=== PATIENT | female | born 1945 | race Caucasian/White ===

== ENCOUNTER → 2017-04-10 | Day surgery (SDC) | payer MEDICARE ==
[~2017-04-10] MED LIST: ACETAMINOPHEN/HYDROcodone 325 MG/5 MG TAB ONE; CIPR750T10 PO; FLAG500T PO; ISOSULFAN BLUE 50 MG/5 ML VIAL SQ ONE; KETOROLAC TROMETHAMINE 30 MG/ML (IVP) VIAL IV PUSH ONE; LACTATED RINGER'S 1000 ML INJ 1,000 ML ONE; LIDOCAINE 1%/EPINEPHrine 1:100,000 SOLN 20 ML VIAL ONE; MIDAZOLAM HCL 2 MG/2 ML VIAL ONE; ONDANSETRON HCL 4 MG/2 ML VIAL IV PUSH ONE; PROPOFOL 200 MG/20 ML AMP IV ONE; ZOFR4TAB3 SL; ceFAZolin 2 GM PREMIX 50 ML ONE
--- NOTE | 2017-04-10 12:54 | TN ---
cc: CARLOS TROY M.D. 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 Abnormal MRI right retroareolar breast tissue. 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 Abnormal MRI right retroareolar breast tissue. PROCEDURE Injection of blue dye right breast, right axillary sentinel lymph node biopsy, excisional biopsy right breast retroareolar tissue, right breast needle-localized lumpectomy. SURGEON Dr. Carlos Troy CLASSIFIED AD TAKER Luisana Stanton, MS3 ANESTHESIA General. 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 Preoperative MRI demonstrated a larger area of involvement than initially anticipated as well as abnormal uptake of contrast in the right retroareolar breast tissue. Ultrasound demonstrated no discrete abnormality in the retroareolar position. INTRAOPERATIVE FINDINGS 1. Three sentinel lymph nodes removed, #1, 2 and 3 all blue stained with 10-second counts of 2389, 116 and 226 respectively. 2. An additional nonsentinel lymph node was directly between sentinel lymph node #1 and #2 and was sent for pathologic evaluation. 3. Right breast retroareolar tissue unoriented was sent for permanent pathology. 4. Right breast needle-localized lumpectomy specimen was sent to Radiology where imaging confirmed and contained the areas of concern, the clips and microcalcifications. 5. An additional medial margin of the right breast lumpectomy cavity was sent separately for pathology. ESTIMATED BLOOD LOSS Less than 20 mL. DESCRIPTION OF PROCEDURE IN DETAIL The patient was identified as Kesha Triana, taken to the operating room, placed in supine position following needle localization and lymphoscintigraphy. Sequential compression devices were placed on bilateral lower extremities. Following induction of adequate general endotracheal anesthesia, a time-out procedure was performed. Following completion of the time-out procedure to everyone's satisfaction within the room, the skin of the breast was prepped with an alcohol prep pad and 5 cc of isosulfan blue dye was injected in the peritumoral and subareolar positions. It was massaged in the breast for about 30 seconds. The right breast and axilla were then prepped and draped in the usual sterile fashion with Betadine. The navigator probe was used to identify increased uptake in the axilla. No increased uptake was identified and internal mammary or supraclavicular raul basins. Proposed incision along the right axilla and the periareolar superolateral right breast were made with a marking pen and infiltrated with local anesthetic. Axillary incision was carried out with scalpel and hemostasis controlled with electrocautery. Dissection continued posteriorly through subcutaneous fatty tissue until axillary fat was identified. Using the navigator probe and visualization of the axillary tissue, the sentinel nodes were identified. Afferent and efferent lymphatics were controlled with hemoclips. The sentinel nodes and the additional nonsentinel node were removed, 10 second counts performed and they were passed off the field for pathologic evaluation. Survey with a navigator probe, visualization and palpation demonstrated no additional abnormal tissue to be removed. The wound was irrigated with saline. Small bleeding points were controlled with electrocautery. The wound was filled with local anesthetic and closed with 3-0 Vicryl and 4-0 Monocryl. Attention was then turned to the right breast. Periareolar areolar incision was carried out with scalpel and hemostasis controlled with electrocautery. Retroareolar tissue centered at the level of the nipple was excised using electrocautery and passed off the field for pathologic evaluation. No palpably or visually abnormal tissue was identified. Attention was then turned to hidden scar lumpectomy. Dissecting posteriorly and along the lateral breast in the superficial breast tissue, the localization needle was identified. It was divided to the level of skin with the wire cutters. A generous lumpectomy specimen about 6 cm in diameter, spherical in shape, was excised from surrounding breast tissues. Clinically posterior margin was chest wall. The specimen was examined and the closest margin to the localization needle appeared to be medial, therefore a medial margin was excised. The lumpectomy specimen was marked with a short stitch superior anterior and a long stitch lateral posterior. The medial margin was marked with a suture on the new medial margin. The specimens were sent, the first one to imaging with the above-mentioned findings, both then sent for permanent pathology. The wound was irrigated copiously with saline. Small bleeding points were controlled with electrocautery. About 20 cc of local anesthetic was placed within the lumpectomy cavity. The breast tissue was then gently approximated over the lumpectomy cavity with 3-0 Vicryl and 3-0 Vicryl was placed in the deep dermis and subcutaneous tissue. The skin was then approximated with a running 4-0 Monocryl subcuticular suture. Dressings were applied with Mastisol, 1/2-inch brown Steri-Strips and a 4x4 gauze and Tegaderm. A Tegaderm with Telfa pad was placed over the axillary incision. The patient tolerated the procedures without apparent complication. Sponge, needle and instrument counts were correct at the end of the case. MD DIVINA Higgins/SSB /12:33 PM /12:45 PM
== END | disposition home or self-care (01) ==
LOC: ESDC 06:25
PROVIDERS: ATTEND Surgery Trauma Surgery
DX: D05.11 Intraductal carcinoma in situ of right breast (principal); R92.8 Other abnormal and inconclusive findings on diagnostic imaging of breast
CPT/HCPCS: 00400; 01610; 19120; 19125; 38525; 38792; 88307; 88341; 88342; 88361; J0690; J1885; J2250; J2405; J3010; J7120; Q9968

== ENCOUNTER 2017-05-22 06:24 | Day surgery (SDC) | payer MEDICARE ==
[~2017-05-22] VITALS: Ht 170.2 cm; Wt 90.0 kg
[2017-05-22] VITALS (7 sets, daily range): BP systolic 138–181; BP diastolic 60–91; PULSE 50–59; RESP 16–20; TEMP 97.6–98; O2SAT 97–99
[~2017-05-22 06:24] MED LIST changes: -ACETAMINOPHEN/HYDROcodone 325 MG/5 MG TAB ONE; -ISOSULFAN BLUE 50 MG/5 ML VIAL SQ ONE; -KETOROLAC TROMETHAMINE 30 MG/ML (IVP) VIAL IV PUSH ONE; -LACTATED RINGER'S 1000 ML INJ 1,000 ML ONE; -LIDOCAINE 1%/EPINEPHrine 1:100,000 SOLN 20 ML VIAL ONE; -MIDAZOLAM HCL 2 MG/2 ML VIAL ONE; -ONDANSETRON HCL 4 MG/2 ML VIAL IV PUSH ONE; -PROPOFOL 200 MG/20 ML AMP IV ONE; -ceFAZolin 2 GM PREMIX 50 ML ONE
[2017-05-22] MEDS ORDERED: SODIUM CHLORIDE 0.9% 1000 ML IV SCH (07:30)
[2017-05-22] MEDS ORDERED: POVIDONE IODINE 5% (ANTISEPSIS KIT) 4 APPLICATIONS EACH NARE SCH (07:30)
[2017-05-22] MEDS ORDERED: ceFAZolin 2 GM PREMIX 50 ML - implanted port/tunneled catheter insertion IV SCH (07:30)
[2017-05-22] MEDS ORDERED: VANCOMYCIN 1000 MG/NS 250 ML - implanted port/tunneled catheter IV SCH ×2 (07:30)
[2017-05-22] MEDS ORDERED: CHLORHEXIDINE GLUCONATE 2 % 1 PACK (2 CLOTHS) TOPICAL SCH (07:30)
[2017-05-22] MEDS ORDERED: fentaNYL CITRATE 250 MCG/5 ML AMP ONE (07:48)
[2017-05-22] MEDS ORDERED: MIDAZOLAM HCL 2 MG/2 ML VIAL ONE ×2 (07:48→08:47)
[2017-05-22] MEDS ORDERED: LIDOCAINE 1%/EPINEPHrine 1:100,000 SOLN 20 ML VIAL ONE (08:07)
[2017-05-22] MEDS ORDERED: SODIUM CHLORIDE 0.9% FLUSH 10 ML FLUSH IVF PRN (09:00)
--- NOTE | 2017-05-22 09:21 | PD.RAD ---
Post Procedure Progress Note Pre Procedure Diagnosis: (1) Breast cancer in situ Post Procedure Diagnosis: (1) Breast cancer in situ Procedure Date: May 22, 2017 Supervising Radiologist: Huy Stewart Proceduralist/Assist: Cathy Brown RT(R), RT Luciana(R)() Anesthesia: Local, Analgesia, Conscious Sedation Plan of Activity Patient to Unit: ROPU Patient Condition: Good See PACS Report for procedural detail/treatment Central Venous Access Device Procedure 1 Right Internal Jugular Infusaport Placement single lumen Latvian: 8 Huy Stewart MD May 22, 2017 09:21
--- NOTE | 2017-05-22 12:46 | RADRPT ---
EXAM DATE/TIME: 05/22/2017 08:18 [facility] COMPARISON: No previous studies available for comparison. INDICATIONS : Patient with history of breast cancer in need of port placement for chemotherapy. MEDICAL HISTORY : 1.Breast cancer 2.Chronic cholecystitis 3.Cholelithiasis 4.Diverticulitis SURGICAL HISTORY : 1.Breast biopsy 2.Lumpectomy 3.Appendectomy 4.Cholecystectomy 5.Tubal ligation 6.Tonsillectomy ENCOUNTER: Initial ACUITY: 1 month PAIN SCORE: 0/10 FLUORO TIME: 0.4 minutes IMAGE SERIES: 0 SEDATION TIME: 60 minutes ACCESS: Right internal jugular vein SEDATION: 1.) 4 mg midazolam (Versed) IV 2.) 250 mcg fentanyl (Sublimaze) IV Prophylactic antibiotics were administered with appropriate pre-procedure timing. Vancomycin within 2 hours of procedure, Ancef (or alternative) within 1 hour of procedure. DEVICE: 1. 8 Wolof single lumen Angiodynamics Smart Power port PROCEDURE : 1. Continuous pulse oximetry and EKG monitoring. 2. Intravenous conscious sedation. 3. Ultrasound guidance for venous access. 4. Fluoroscopic guided implantable central venous port placement. The patient was placed supine. The neck was prepped in sterile fashion. Full sterile technique was u sed, including cap, mask, sterile gloves and gown, and a large sterile sheet. Hand hygiene and 2% ch lorhexidine Betadine was utilized per protocol for cutaneous antisepsis with appropriate dry time for site. The skin and subcutaneous tissues were infiltrated with local anesthetic solution. Under direct ultrasound guidance, central venous access was accomplished in the targeted vessel. The ultrasound images depicting access guidance were stored and saved to PACS for permanent record. A s ubcutaneous pocket was created using blunt dissection. The port was introduced to the pocket. The c atheter tubing was fed through a subcutaneous tunnel to the venotomy site. The catheter tubing was c ut to a suitable length and then was introduced through a valved Peel-Away sheath and positioned with catheter tubing tip at the cavo-atrial junction level. The pocket incision was closed with subcutic ular Vicryl suture. Steri-Strips were applied. The port was flushed and locked with heparin solutio n per protocol. Sterile dressing was applied to the site. The patient tolerated the procedure well. Conscious sedation was performed with the prescribed dosages and duration as above in the presence of an independent trained radiology nurse to assist in the monitoring of the patient. EKG and oximetry remained stable throughout the procedure. The patient tolerated the procedure well and there were no complications. The patient was sent to post anesthesia recovery in stable condition. CONCLUSION: Uncomplicated ultrasound and fluoroscopic guided implanted central venous port catheter placement as described in detail above. An 8 Wolof Power port was placed. Huy Stewart MD on May 22, 2017 at 12:44 Board Certified Radiologist. This report was verified electronically.
== END 2017-05-22 11:20 | disposition home or self-care (01) ==
LOC: HRIP 06:24 → HROP 06:24
PROVIDERS: ATTEND Internal Medicine
DX: Z45.2 Encounter for adjustment and management of vascular access device (principal); D05.11 Intraductal carcinoma in situ of right breast
CPT/HCPCS: 36561; 76937; 77001; 99152; 99153; C1788; J0690; J1642; J2250; J3010; J3370; J7050

== ENCOUNTER → 2017-06-09 | Day surgery (SDC) | payer MEDICARE ==
[~2017-06-09] MED LIST changes: +AMOX875T2 PO; -CIPR750T10 PO; -FLAG500T PO; +FLOR250C PO; +HYDR-3580 PO; +IOHEXOL 180 MG/ML 20 ML VIAL (for RAD DIAG) OTHER ONE; +LEVA500T20 PO; +LIDOCAINE HCL 1% PF 30 ML VIAL ONE; +METR-1 PO; +MIDAZOLAM HCL 2 MG/2 ML VIAL ONE; +PROPOFOL 200 MG/20 ML AMP IV ONE; +TRIAMCINOLONE ACETONIDE 40 MG/ML VIAL ONE; -ZOFR4TAB3 SL; +[UNRECOGNIZED DRUG - CODE] IM; +chemo IV
--- NOTE | 2017-06-09 12:36 | TN ---
cc: PEREZ POOL DATE OF SURGERY 06/09/2017 PREOPERATIVE DIAGNOSIS 1. Osteoarthritis right hip. 2. Arthrofibrosis right hip. POSTOPERATIVE DIAGNOSIS 1. Osteoarthritis right hip. 2. Arthrofibrosis right hip. PROCEDURE 1. Arthrogram right hip. 2. Manipulation right hip under anesthesia. 3. Use of fluoroscopy for percutaneous guidance 4. Injection of right hip with Kenalog 40 mg 5. X-ray right hip, two-view SURGEON Perez Pool MD ANESTHESIA TIVA ESTIMATED BLOOD LOSS Minimal INDICATIONS This is a 71-year-old female with significant right hip pain. Investigative studies shows evidence of severe arthritis of the right hip. The patient care is complicated by ongoing treatment for breast carcinoma. She presents for the above procedure. PROCEDURE The patient was brought to the operating room, anesthetized in the supine position. The right leg was scrubbed with alcohol followed by Hibiclens followed Chloraprep and draped sterilely. Antibiotics were held. A time-out was done. The hip was evaluated. Under anesthesia, range of motion and extension negative 15, flexion 80, internal rotation 10, external rotation 15, abduction 20, adduction 5. The hip was manipulated. After manipulation, range of motion extension zero, flexion 100, internal rotation 20, external rotation 30, adduction 15, abduction 30. The right hip was scrubbed alcohol followed by Hibiclens followed Chloraprep and draped sterilely. A 22-gauge spinal needle was advanced across the anterior aspect of the right hip joint. This was placed into intra-articular position. An arthrogram was performed. This showed pitting and erosive changes. Large circumferential osteophytes were seen. There was no leak of contrast. We then injected with 40 mg of Kenalog and 3 cc of 1% lidocaine plain. The patient was awakened and taken to recovery in satisfactory condition. MD SUJEY Silverman/JUAN /12:14 PM /12:26 PM
== END | disposition home or self-care (01) ==
LOC: ESDC 09:49
PROVIDERS: ATTEND Orthopaedic Surgery Orthopaedic Surgery of the Spine
DX: M16.11 Unilateral primary osteoarthritis, right hip (principal); M24.651 Ankylosis, right hip
CPT/HCPCS: 01200; 27275; 73501; 76000; J2250; J3010; J3301; Q9965

== ENCOUNTER 2017-07-07 08:33 | Inpatient (IN) | payer MEDICARE ==
[2017-07-07] VITALS (7 sets, daily range): BP systolic 117–155; BP diastolic 66–73; PULSE 73–85; RESP 16–20; TEMP 96.3–97.9; O2SAT 96–100
[~2017-07-07] VITALS: Ht 170.2 cm; Wt 92.9 kg
[2017-07-07] MEDS ORDERED: SODIUM CHLOR 0.9% 1000 ML INJ 1,000 ML IV SCH (08:57)
[2017-07-07] MEDS ORDERED: chemo IV (08:59)
[2017-07-07] MEDS ORDERED: [UNRECOGNIZED DRUG - CODE] IM (08:59)
[2017-07-07] MEDS ORDERED: HYDROmorphone HCL PF 2 MG/ML VIAL IVS ONE (09:00)
[2017-07-07] MEDS ORDERED: ONDANSETRON HCL 4 MG/2 ML VIAL IVP ONE (09:00)
[2017-07-07] MEDS ORDERED: SODIUM CHLORIDE 0.9% FLUSH 10 ML FLUSH IV FLUSH PRN (09:00)
[2017-07-07] MEDS ORDERED: AMPICILLIN-SULBACTAM INJ 3 GM in SODIUM CHLORIDE 0.9% INJ 100 ML IV ONE (09:00)
--- NOTE | 2017-07-07 09:00 | PD ---
HPI Chief Complaint: Abdominal Pain Time Seen by Provider: 08:47 Travel History International Travel<30 days: No Contact w/Intl Traveler<30days: No Traveled to known affect area: No History of Present Illness HPI This 71-year-old female is complaining of left-sided abdominal pain. She has had diverticulitis in the past. She had an episode about a year ago. She had a another episode started around June 21. She was put on 10 days of Flagyl and Cipro. She took her last pill last Monday and since she felt like she was okay. She started having some left-sided pain yesterday and this morning around 5:30 the pain became increasingly severe. She has a little bit nauseated. She has a history of breast cancer. She had her second chemotherapy treatment last week. She has seen Dr. Cruz in the past and had a colonoscopy done 2 years ago. She says the pain she is having now is quite severe and has been fairly constant. She is not aware of fever. PFSH Past Medical History Cancer: Yes (breast ) Cardiovascular Problems: No Chemotherapy: Yes (monday07/05/17) Diabetes: No Diminished Hearing: No Diverticulitis: Yes Endocrine: No Gastrointestinal Disorders: Yes (diverticulitis) Genitourinary: No Hepatitis: No Hiatal Hernia: No Immune Disorder: No Musculoskeletal: No Neurologic: No Psychiatric: No Reproductive: No Respiratory: No Immunizations Current: No Thyroid Disease: No Tetanus Vaccination: Unknown Influenza Vaccination: No ?: Not Past Surgical History Abdominal Surgery: Yes (gall bladder) AICD: No Appendectomy: Yes Cholecystectomy: Yes Joint Replacement: No Pacemaker: No Tonsillectomy: Yes Other Surgery: Yes Social History Alcohol Use: No Tobacco Use: No (FORMER) Substance Use: No Allergies-Medications (Allergen,Severity, Reaction): Coded Allergies: No Known Allergies (Unverified , 07/07/17) Reported Meds & Prescriptions Reported Meds & Active Scripts Active Reported Herceptin Inj (Trastuzumab) 440 Mg Inj 1 Injection IM [chemo] 1 Bag IV [id number] Review of Systems General / Constitutional: No: Fever, Chills Eyes: No: Diploplia HENT: No: Headaches, Vertigo Cardiovascular: No: Chest Pain or Discomfort, Palpitations Respiratory: No: Cough, Shortness of Breath Gastrointestinal: Positive: Nausea, Abdominal Pain, No: Vomiting, Diarrhea Genitourinary: No: Frequency, Dysuria Skin: No Rash, No Itching Neurologic: No: Weakness, Dizziness Psychiatric: No: Anxiety Physical Exam Narrative GENERAL: Well-developed female SKIN: Focused skin assessment warm/dry. HEAD: Atraumatic. Normocephalic. EYES: Pupils equal and round. No scleral icterus. No injection or drainage. ENT: No nasal bleeding or discharge. Mucous membranes pink and moist. NECK: Trachea midline. No JVD. CARDIOVASCULAR: Regular rate and rhythm. No murmur appreciated. RESPIRATORY: No accessory muscle use. Clear to auscultation. Breath sounds equal bilaterally. GASTROINTESTINAL: Abdomen soft, there is left-sided abdominal tenderness nondistended. Hepatic and splenic margins not palpable. MUSCULOSKELETAL: No obvious deformities. No clubbing. No cyanosis. No edema. NEUROLOGICAL: Awake and alert. No obvious cranial nerve deficits. Motor grossly within normal limits. Normal speech. PSYCHIATRIC: Appropriate mood and affect; insight and judgment normal. Data Data Last Documented VS Vital Signs Date Time Temp Pulse Resp B/P (MAP) Pulse Ox O2 Delivery O2 Flow Rate FiO2 07/07/17 11:20 16 07/07/17 10:14 77 155/73 (100) 99 Room Air 07/07/17 08:41 97.9 Orders Orders Complete Blood Count With Diff (07/07/17 08:57) Comprehensive Metabolic Panel (07/07/17 08:57) Urinalysis - C+S If Indicated (07/07/17 08:57) Ct Abd/Pel W Iv Contrast(Rout) (07/07/17 08:57) Iv Access Insert/Monitor (07/07/17 08:57) Oximetry (07/07/17 08:57) Hydromorphone Pf Inj (Dilaudid Pf Inj) (07/07/17 09:00) Ondansetron Inj (Zofran Inj) (07/07/17 09:00) Ampicillin-Sulbactam Inj (Unasyn Inj) (07/07/17 09:00) Sodium Chlor 0.9% 1000 Ml Inj (Ns 1000 M (07/07/17 08:57) Sodium Chloride 0.9% Flush (Ns Flush) (07/07/17 09:00) Hydromorphone Pf Inj (Dilaudid Pf Inj) (07/07/17 10:45) Admit Order (Ed Use Only) (07/07/17 11:19) Labs Laboratory Tests Test 07/07/17 09:25 White Blood Count 13.2 TH/MM3 Red Blood Count 4.06 MIL/MM3 Hemoglobin 12.6 GM/DL Hematocrit 37.0 % Mean Corpuscular Volume 91.2 FL Mean Corpuscular Hemoglobin 31.1 PG Mean Corpuscular Hemoglobin Concent 34.2 % Red Cell Distribution Width 12.0 % Platelet Count 266 TH/MM3 Mean Platelet Volume 7.0 FL Neutrophils (%) (Auto) 91.6 % Lymphocytes (%) (Auto) 5.6 % Monocytes (%) (Auto) 0.9 % Eosinophils (%) (Auto) 0.7 % Basophils (%) (Auto) 1.2 % Neutrophils # (Auto) 12.1 TH/MM3 Lymphocytes # (Auto) 0.7 TH/MM3 Monocytes # (Auto) 0.1 TH/MM3 Eosinophils # (Auto) 0.1 TH/MM3 Basophils # (Auto) 0.2 TH/MM3 CBC Comment DIFF FINAL Differential Comment Blood Urea Nitrogen 17 MG/DL Creatinine 0.88 MG/DL Random Glucose 108 MG/DL Total Protein 6.9 GM/DL Albumin 3.3 GM/DL Calcium Level 9.1 MG/DL Alkaline Phosphatase 76 U/L Aspartate Amino Transf (AST/SGOT) 24 U/L Alanine Aminotransferase (ALT/SGPT) 28 U/L Total Bilirubin 0.6 MG/DL Sodium Level 137 MEQ/L Potassium Level 4.2 MEQ/L Chloride Level 103 MEQ/L Carbon Dioxide Level 23.8 MEQ/L Anion Gap 10 MEQ/L Estimat Glomerular Filtration Rate 64 ML/MIN [facility] Medical Decision Making Medical Screen Exam Complete: Yes Emergency Medical Condition: Yes Medical Record Reviewed: Yes Differential Diagnosis Hemoglobin is 12.6 with a white count of 13.2. CT of the abdomen and pelvis was obtained. There is a very small diverticular abscess which is too small to drain secondary to diverticulitis. Patient has had significant pain. She has required repeated doses of Dilaudid for pain control. as previously failed Cipro and Flagyl IV initiated Unasyn. Narrative Course Patient has been given Unasyn and repeated doses of Dilaudid. She'll be admitted for further treatment Diagnosis Primary Impression: Diverticulitis of intestine with abscess Admitting Information Admitting Physician Requests: Admit Stephon Waddell MD Jul 07, 2017 09:00
[2017-07-07 09:30] LABS: AUTOMATED NEUTROPHIL # 12.1 TH/MM3 (1.8-7.7); BASOPHIL # 0.2 TH/MM3 (0-0.2); BASOPHIL % 1.2 % (0.0-2.0); EOSINOPHIL # 0.1 TH/MM3 (0-0.4); EOSINOPHIL % 0.7 % (0.0-4.0); HEMO FLAGS DIFF FINAL; LYMPH % 5.6 % (9.0-44.0); LYMPHOCYTE # 0.7 TH/MM3 (1.0-4.8); MEAN CELL VOLUME 91.2 FL (80.0-100.0); MEAN CORPUSCULAR HEMOGLOBIN 31.1 PG (27.0-34.0); MEAN CORPUSCULAR HGB CONC 34.2 % (32.0-36.0); MONO % 0.9 % (0.0-8.0); NEUT % 91.6 % (16.0-70.0); PLATELET COUNT 266 TH/MM3 (150-450); RED BLOOD COUNT 4.06 MIL/MM3 (4.00-5.30); WHITE BLOOD COUNT 13.2 TH/MM3 (4.0-11.0)
[2017-07-07 09:51] LABS: BICARBONATE 23.8 MEQ/L (21.0-32.0); BLOOD UREA NITROGEN 17 MG/DL (7-18)
[2017-07-07 09:54] LABS: ALT (GPT) 28 U/L (10-53); AST (GOT) 24 U/L (15-37); GLOMERULAR FILTRATION RATE 64 ML/MIN (>89)
[2017-07-07 09:55] LABS: TOTAL BILIRUBIN ADULT 0.6 MG/DL (0.2-1.0)
[2017-07-07 09:56] LABS: ANION GAP 10 MEQ/L (5-15); CHLORIDE 103 MEQ/L (98-107); POTASSIUM 4.2 MEQ/L (3.5-5.1); SODIUM (NA) 137 MEQ/L (136-145)
[2017-07-07 09:57] LABS: ALKALINE PHOSPHATASE 76 U/L (45-117)
[2017-07-07] MEDS ORDERED: IOHEXOL 350 MG/ML 10 ML VIAL (for RAD DIAG) IVCONTRAST ONE (10:05)
--- NOTE | 2017-07-07 10:32 | RADRPT ---
EXAM DATE/TIME: 07/07/2017 10:04 [facility] COMPARISON: CT ABDOMEN & PELVIS W CONTRAST, March 14, 2016, 11:28. INDICATIONS : Left lower quadrant abdominal pain. IV CONTRAST: 96 cc Omnipaque 350 (iohexol) IV ORAL CONTRAST: No oral contrast ingested. RADIATION DOSE: 16.90 CTDIvol (mGy) MEDICAL HISTORY : Diverticulitis. Carcinoma, breast. On Chemo. SURGICAL HISTORY : Tonsillectomy. Cholecystectomy. ENCOUNTER: Initial ACUITY: 1 day PAIN SCALE: 6/10 LOCATION: Left lower quadrant TECHNIQUE: Volumetric scanning of the abdomen and pelvis was performed. Using automated exposure control and ad justment of the mA and/or kV according to patient size, radiation dose was kept as low as reasonably achievable to obtain optimal diagnostic quality images. DICOM format image data is available electro nically for review and comparison. FINDINGS: LOWER LUNGS: The visualized lower lungs are clear. LIVER: Homogeneous density without lesion. There is mild dilation of the biliary tree. Cholecystectomy. SPLEEN: Normal size without lesion. PANCREAS: Within normal limits. KIDNEYS: Normal in size and shape. There is no mass, stone or hydronephrosis. ADRENAL GLANDS: Within normal limits. VASCULAR: There is no aortic aneurysm. BOWEL/MESENTERY: Small diverticular abscess descending colon and junction of the sigmoid colon. This measures 2.0 x 2. 3 cm. No perforation. Inflammatory changes. Small hiatal hernia. There is no free intraperitoneal ai r or fluid. ABDOMINAL WALL: Within normal limits. RETROPERITONEUM: There is no lymphadenopathy. BLADDER: No wall thickening or mass. REPRODUCTIVE: Within normal limits. INGUINAL: There is no lymphadenopathy or hernia. MUSCULOSKELETAL: Within normal limits for patient age. CONCLUSION: 1. Very small diverticular abscess, too small to percutaneously drain. This is secondary to diverticu litis. 2. Small hiatal hernia previous cholecystectomy. James Harrison MD on July 07, 2017 at 10:24 Board Certified Radiologist. This report was verified electronically.
[2017-07-07] MEDS ORDERED: HYDROmorphone HCL PF 1 MG/ML VIAL IV PUSH ONE (10:45)
--- NOTE | 2017-07-07 15:35 | HHI.HP ---
[facility] Service [facility] Primary Care Physician Eyad Marsh M.D. Admission Diagnosis ACUTE DIVERTICULITIS Diagnoses: Chief Complaint: Abdominal pain Travel History International Travel<30 Days: No Contact w/Intl Traveler <30 Da: No Traveled to Known Affected Are: No History of Present Illness This patient very pleasant 71-year-old female with a history of diverticular disease who started having abdominal discomfort and nausea over 10 days ago. 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 She took 10 days of Flagyl and Cipro orally and noted that the pain got worse. She had intermittent fevers and chills. She says her temperature at home was 100.5 but she took Tylenol because her oncologist patient states she has breast cancer) told her not to let it get above 100.5. She presents now with worsening abdominal pain right side and with nausea and has reported the pain is a 10 out of 10. He is now 4 out of 10 after IV Dilaudid. Her nausea is better also after antiemetics. The patient's been admitted to the hospital with abdominal pain and is now by imaging known to have a very small abscess associated with acute diverticulitis. She is being treated for the same with IV antibiotics Review of Systems Constitutional: COMPLAINS OF: Fatigue, Fever (MAXIMUM TEMPERATURE 100.5 at home per patient), Chills, DENIES: Diaphoretic episodes, Weight gain, Weight loss, Dizziness, Change in appetite, Night Sweats Endocrine: DENIES: Abnorml menstrual pattern, Heat/cold intolerance, Polydipsia , Polyuria, Polyphagia Ears, nose, mouth, throat: DENIES: Tinnitus, Hearing loss, Vertigo, Nasal discharge, Oral lesions, Throat pain, Hoarseness, Ear Pain, Running Nose, Epistaxis, Sinus Pain, Toothache, Odynophagia Respiratory: DENIES: Apneas, Cough, Snoring, Wheezing, Hemoptysis, Sputum production, Shortness of breath Cardiovascular: DENIES: Chest pain, Palpitations, Syncope, Dyspnea on Exertion , PND, Lower Extremity Edema, Orthopnea, Claudication Gastrointestinal: COMPLAINS OF: Abdominal pain, Constipation, Nausea Genitourinary: DENIES: Abnormal vaginal bleeding, Dysmenorrhea, Dyspareunia, Sexual dysfunction, Urinary frequency, Urinary incontinence, Urgency, Hematuria , Dysuria, Nocturia, Vaginal discharge Musculoskeletal: DENIES: Joint pain, Muscle aches, Stiffness, Joint Swelling, Back pain, Neck pain Integumentary: DENIES: Abnormal pigmentation, Pruritus, Rash, Nail changes, Breast masses, Breast skin changes, Nipple discharge Hematologic/lymphatic: DENIES: Bruising, Lymphadenopathy Immunologic/allergic: DENIES: Eczema, Urticaria Neurologic: DENIES: Abnormal gait, Headache, Localized weakness, Paresthesias, Seizures, Speech Problems, Tremor, Poor Balance Psychiatric: DENIES: Anxiety, Confusion, Mood changes, Depression, Hallucinations, Agitation, Suicidal Ideation, Homicidal Ideation, Delusions Except as stated in HPI: all other systems reviewed are Neg Past Family Social History Past Medical History Breast cancer, diverticular disease Past Surgical History Cholecystectomy, tubal ligation Breast resection Reported Medications Reviewed in the EMR, recently completed ciprofloxacin and Flagyl Allergies: Coded Allergies: No Known Allergies (Unverified , 07/07/17) Active Ordered Medications Reviewed in the EMR Family History Mother from respiratory failure, father from prostate tumor Social History Because of her , no tobacco or alcohol dependency Physical Exam Vital Signs Vital Signs Date Time Temp Pulse Resp B/P (MAP) Pulse Ox O2 Delivery O2 Flow Rate FiO2 07/07/17 13:50 97.1 73 18 123/72 (89) 98 07/07/17 12:29 83 16 126/66 (86) 98 07/07/17 11:20 16 07/07/17 10:29 16 07/07/17 10:14 77 16 155/73 (100) 99 Room Air 07/07/17 10:10 16 99 Room Air 07/07/17 08:52 16 07/07/17 08:41 97.9 85 16 134/68 (90) 100 Physical Exam GENERAL: This is a well-nourished, well-developed patient, in no apparent distress. SKIN: No rashes, ecchymoses or lesions. Cool and dry. HEAD: Atraumatic. Normocephalic. No temporal or scalp tenderness. EYES: Pupils equal round and reactive. Extraocular motions intact. No scleral icterus. No injection or drainage. ENT: Nose without bleeding, purulent drainage or septal hematoma. Throat without erythema, tonsillar hypertrophy or exudate. Uvula midline. Airway patent. NECK: Trachea midline. No JVD or lymphadenopathy. Supple, nontender, no meningeal signs. CARDIOVASCULAR: Chest port in place, Regular rate and rhythm without murmurs, gallops, or rubs. RESPIRATORY: Clear to auscultation. Breath sounds equal bilaterally. No wheezes , rales, or rhonchi. GASTROINTESTINAL: Abdomen soft, moderately diffusely tender, nondistended. No hepato-splenomegaly, or palpable masses. No guarding. Hypoactive bowel sounds MUSCULOSKELETAL: Extremities without clubbing, cyanosis, or edema. No joint tenderness, effusion, or edema noted. No calf tenderness. Negative Homans sign bilaterally. NEUROLOGICAL: Awake and alert. Cranial nerves II through XII intact. Motor and sensory grossly within normal limits. Five out of 5 muscle strength in all muscle groups. Normal speech. Laboratory Laboratory Tests Test 07/07/17 09:25 White Blood Count 13.2 Red Blood Count 4.06 Hemoglobin 12.6 Hematocrit 37.0 Mean Corpuscular Volume 91.2 Mean Corpuscular Hemoglobin 31.1 Mean Corpuscular Hemoglobin Concent 34.2 Red Cell Distribution Width 12.0 Platelet Count 266 Mean Platelet Volume 7.0 Neutrophils (%) (Auto) 91.6 Lymphocytes (%) (Auto) 5.6 Monocytes (%) (Auto) 0.9 Eosinophils (%) (Auto) 0.7 Basophils (%) (Auto) 1.2 Neutrophils # (Auto) 12.1 Lymphocytes # (Auto) 0.7 Monocytes # (Auto) 0.1 Eosinophils # (Auto) 0.1 Basophils # (Auto) 0.2 CBC Comment DIFF FINAL Differential Comment Blood Urea Nitrogen 17 Creatinine 0.88 Random Glucose 108 Total Protein 6.9 Albumin 3.3 Calcium Level 9.1 Alkaline Phosphatase 76 Aspartate Amino Transf (AST/SGOT) 24 Alanine Aminotransferase (ALT/SGPT) 28 Total Bilirubin 0.6 Sodium Level 137 Potassium Level 4.2 Chloride Level 103 Carbon Dioxide Level 23.8 Anion Gap 10 Estimat Glomerular Filtration Rate 64 Result Diagram: 07/07/1725 07/07/1725 Imaging Last Impressions Abdomen/Pelvis CT 07/07/17 0857 Signed Impressions: Service Date/Time: Friday, July 07, 2017 10:04 - CONCLUSION: 1. Very small diverticular abscess, too small to percutaneously drain. This is secondary to diverticulitis. 2. Small hiatal hernia previous cholecystectomy. MD Lea Valenzuela VTE Risk Assessment Nixonrinnirav VTE Risk Assessment: Mod/High Risk (score >= 2) Caprini Risk Assessment Model Point Value = 1 Point Value = 2 Point Value = 3 Point Value = 5 Age 41-60 Minor surgery BMI > 25 kg/m2 Swollen legs Varicose veins or History of unexplained or recurrent spontaneous Oral contraceptives or hormone replacement Sepsis (< 1 month) Serious lung disease, including pneumonia (< 1 month) Abnormal pulmonary function Acute myocardial infarction Congestive heart failure (< 1 month) History of inflammatory bowel disease Medical patient at bed rest Age 61-74 Arthroscopic surgery Major open surgery (> 45 min) Laparoscopic surgery (> 45 min) Malignancy Confined to bed (> 72 hours) Immobilizing plaster cast Central venous access Age >= 75 History of VTE Family history of VTE Factor V Leiden Prothrombin [id number] Lupus anticoagulant Anticardiolipin antibodies Elevated serum homocysteine Heparin-induced thrombocytopenia Other congenital or acquired thrombophilia Stroke (< 1 month) Elective arthroplasty Hip, pelvis, or leg fracture Acute spinal cord injury (< 1 month) Prophylaxis Regimen Total Risk Factor Score Risk Level Prophylaxis Regimen 0-1 Low Early ambulation 2 Moderate Order ONE of the following: *Sequential Compression Device (SCD) *Heparin 5000 units SQ BID 3-4 Higher Order ONE of the following medications: *Heparin 5000 units SQ TID *Enoxaparin/Lovenox 40 mg SQ daily (WT < 150 kg, CrCl > 30 mL/min) *Enoxaparin/Lovenox 30 mg SQ daily (WT < 150 kg, CrCl > 10-29 mL/min) *Enoxaparin/Lovenox 30 mg SQ BID (WT < 150 kg, CrCl > 30 mL/min) AND/OR *Sequential Compression Device (SCD) 5 or more Highest Order ONE of the following medications: *Heparin 5000 units SQ TID (Preferred with Epidurals) *Enoxaparin/Lovenox 40 mg SQ daily (WT < 150 kg, CrCl > 30 mL/min) *Enoxaparin/Lovenox 30 mg SQ daily (WT < 150 kg, CrCl > 10-29 mL/min) *Enoxaparin/Lovenox 30 mg SQ BID (WT < 150 kg, CrCl > 30 mL/min) AND *Sequential Compression Device (SCD) Assessment and Plan Problem List: (1) Diverticulitis of intestine with abscess ICD Code: K57.80 - Diverticulitis of intestine, part unspecified, with perforation and abscess without bleeding Status: Acute Plan: Patient recently completed 10 days of oral antibiotics (ciprofloxacin and metronidazole) the patient will now be started on Zosyn. We'll follow up with GI ([facility]) Continue IV narcotics for pain IV fluids and clear liquid diet patient has abscess which may need to be drained however it is very very small at this point and we will continue with plans for medical management (2) Breast cancer in situ ICD Code: D05.90 - Unspecified type of carcinoma in situ of unspecified breast Plan: Patient will continue with outpatient follow-up with her oncologist Dr. childs, she is aware Code Status Full code Discussed Condition With Patient, NUHA Ewing Physician Certification 2 Midnight Certification Type: Admission for Inpatient Services Order for Inpatient Services The services are ordered in accordance with Medicare regulations or non- Medicare payer requirements, as applicable. In the case of services not specified as inpatient-only, they are appropriately provided as inpatient services in accordance with the 2-midnight benchmark. Estimated LOS (days): 3 3 days is the estimated time the patient will need to remain in the hospital, assuming treatment plan goals are met and no additional complications. Post-Hospital Plan: Home Homa Ann MD Jul 07, 2017 15:35
[2017-07-07] MEDS: HYDROmorphone HCL PF 2 MG/ML VIAL IVS PRN ×2 (16:10→21:21)
[2017-07-07] MEDS: HEPARIN SODIUM - SQ 10,000 UNITS/ML VIAL SQ SCH (16:20)
[2017-07-07] MEDS: PIPERACIL-TAZO 4.5 GM PREMIX 100 ML IV SCH (17:07)
[2017-07-07 17:26] LABS: GLUCOSE,URINE NEG (NEG); KETONE, URINE NEG (NEG); NITRITE,URINE NEG (NEG)
[2017-07-07 17:28] LABS: BLOOD, URINE TRACE (NEG)
[2017-07-07 17:31] LABS: COMMENT (UR) CULT NOT INDICATED; CULTURE IF INDICATED CULT NOT INDICATED; METHOD OF COLLECTION CLEAN CATCH; RBC, URINE 0-3 /hpf (0-3); SQUAMOUS EPITHELIAL CELL URINE 0-5 /hpf (0-5); URINE COLOR YELLOW (YELLW/STRAW)
[2017-07-08 00:02] VITALS: BP 119/64; PULSE 64; RESP 18; TEMP 97; O2SAT 97
[2017-07-08] MEDS: PIPERACIL-TAZO 4.5 GM PREMIX 100 ML IV SCH ×4 (00:35→23:29)
[2017-07-08] MEDS: HEPARIN SODIUM - SQ 10,000 UNITS/ML VIAL SQ SCH ×4 (00:37→23:30)
[2017-07-08] MEDS: HYDROmorphone HCL PF 2 MG/ML VIAL IVS PRN ×5 (01:13→21:29)
[2017-07-08 08:00] VITALS: BP 126/71; PULSE 65; RESP 18; TEMP 98.1; O2SAT 98
[2017-07-08] MEDS ORDERED: SODIUM CHLORIDE 0.9% FLUSH 10 ML FLUSH IV FLUSH PRN (08:00)
[2017-07-08 08:02] LABS: AUTOMATED NEUTROPHIL # 5.2 TH/MM3 (1.8-7.7); BASOPHIL % 0.2 % (0.0-2.0); EOSINOPHIL # 0.1 TH/MM3 (0-0.4); EOSINOPHIL % 1.1 % (0.0-4.0); HEMATOCRIT 31.9 % (35.0-46.0); HEMO FLAGS DIFF FINAL; LYMPH % 13.6 % (9.0-44.0); LYMPHOCYTE # 0.8 TH/MM3 (1.0-4.8); MEAN CELL VOLUME 90.6 FL (80.0-100.0); MEAN CORPUSCULAR HEMOGLOBIN 29.8 PG (27.0-34.0); MEAN CORPUSCULAR HGB CONC 32.9 % (32.0-36.0); MONO % 1.3 % (0.0-8.0); NEUT % 83.8 % (16.0-70.0); PLATELET COUNT 195 TH/MM3 (150-450); RED BLOOD COUNT 3.52 MIL/MM3 (4.00-5.30); RED CELL DISTRIBUTION WIDTH 11.8 % (11.6-17.2); WHITE BLOOD COUNT 6.2 TH/MM3 (4.0-11.0)
[2017-07-08 08:10] LABS: POTASSIUM 3.8 MEQ/L (3.5-5.1)
[2017-07-08 08:22] LABS: BICARBONATE 26.7 MEQ/L (21.0-32.0)
--- NOTE | 2017-07-08 12:00 | MB ---
cc: JOSE HAYES M.D., CARMEN L. MD AGNONE, LOUIS M. MD DATE OF CONSULTATION: 07/08/2017 ROOM NUMBER: [id number] REFERRING PHYSICIAN: Emerald Tapia MD. REASON FOR CONSULTATION: Diverticulitis. HISTORY This is a very pleasant 71-year-old female who was admitted yesterday with approximately two weeks of left lower quadrant pain. The patient has a history of diverticular disease with diverticulitis episodes in the past. She states she keeps Cipro and Flagyl on hand at home and about 2 weeks ago started taking Cipro and Flagyl both twice a day for 10 days. She states the pain got much better earlier this week she was feeling well. On Monday she received her scheduled chemotherapy for breast cancer and 2 days later on Monday morning pain came back and was quite severe prompting her to come to the hospital. CT scan shows diverticulitis with a small abscess too small to drain percutaneously. The patient has been started on IV Zosyn and is feeling better. She does not have much appetite but no nausea or vomiting. Her last colonoscopy was 2 years ago. No family history of colon cancer. She was diagnosed recently with breast cancer and underwent a right breast lumpectomy by Dr. Andrade and has been getting chemotherapy every 3 weeks with her last treatment this past Monday, 3 days ago. PAST MEDICAL HISTORY: The patients medical history is remarkable for recently diagnosed breast cancer She is status post appendectomy and cholecystectomy She has a history of diverticulitis. No significant other medical history. MEDICATIONS AT HOME Included the recent 1. Cipro. 2. Flagyl. 3. She takes melatonin sometimes as a sleep aid. ALLERGIES NO KNOWN DRUG ALLERGIES FAMILY HISTORY: Her father had prostate cancer, otherwise unremarkable. SOCIAL HISTORY His the patient is . She has grown children. She still works as a realtor. She has never been a smoker. No significant alcohol history. REVIEW OF SYSTEMS She states that she actually was feeling very well up until this pain came back the other day. No cardiopulmonary symptoms. No urological symptoms. No headache or weight loss. No joint complaints. PHYSICAL EXAMINATION: IN GENERAL: Physical exam reveals a well-developed female in no acute distress. VITAL SIGNS: Her blood pressure is 119/64, pulse 64 and regular, respirations 18 nonlabored, temperature is 97. HEAD, EYES, EARS, NOSE, AND THROAT: Sclerae anicteric. NECK: Supple without masses. LUNGS: The lungs were clear. CARDIOVASCULAR SYSTEM: Heart sounds are regular without murmur, gallop or rub. ABDOMEN: Abdomen is soft with moderate left lower quadrant tenderness with some mild guarding but no rebound. Bowel sounds are present. RECTUM: Rectal was deferred. EXTREMITIES: No cyanosis, clubbing or edema. Skin: Warm and dry. NEUROLOGIC: She is alert and oriented with a pleasant affect and no gross motor deficits. LABORATORY FINDINGS On admission yesterday her white count was 13.2 with a left shift but has improved down to 6.2 with less of a shift. Hemoglobin 10.5. Her chemistries are unremarkable. Albumin was low at 3.3. Urinalysis revealed trace occult blood, otherwise unremarkable. RADIOLOGIC: CT scan as mentioned above. IMPRESSION: Acute diverticulitis with a small abscess. The patient failed outpatient antibiotic therapy but unclear if she was taking an adequate dosage. She has had a few episodes of diverticulitis in the past. I did discuss with her the indications for elective bowel resection. Her next chemotherapy is scheduled in about 2-1/2 weeks and she has two more treatments scheduled. PLAN: Continue IV therapy and then switch over to something oral such as Augmentin and perhaps extend the treatment out a couple of weeks. Repeat a CT scan in about 5-7 days to see if the abscess has resolved. Dr. Andrade has done her cholecystectomy and breast surgery so can consult him if necessary. I will follow with you. Thank you this consult. MD FANNY Kowalski/jim /10:09 AM /10:53 AM JUANI
[2017-07-08 12:05] VITALS: BP 133/72; PULSE 62; RESP 16; TEMP 96; O2SAT 97
[2017-07-08 16:00] VITALS: BP 120/87; PULSE 69; RESP 18; TEMP 97.2; O2SAT 97
[2017-07-08 20:18] VITALS: BP 145/75; PULSE 73; RESP 16; TEMP 98.9; O2SAT 96
[2017-07-09 00:18] VITALS: BP 129/73; PULSE 69; RESP 16; TEMP 98.4; O2SAT 97
[2017-07-09] MEDS: HYDROmorphone HCL PF 2 MG/ML VIAL IVS PRN (05:06)
[2017-07-09 08:00] VITALS: BP 130/66; PULSE 73; RESP 18; TEMP 97.6; O2SAT 98
--- NOTE | 2017-07-09 08:17 | HHI.PR ---
Subjective Remarks Patient seen in follow-up for diverticular abscess and abdominal pain, symptoms are improving. GI consultation appreciated. Patient will try oral antibiotics and diet and oral pain medicine. Objective Vitals Vital Signs Date Time Temp Pulse Resp B/P (MAP) Pulse Ox O2 Delivery O2 Flow Rate FiO2 07/09/17 00:18 98.4 69 16 129/73 (91) 97 07/08/17 20:18 98.9 73 16 145/75 (98) 96 07/08/17 16:00 97.2 69 18 120/87 (98) 97 07/08/17 12:05 96.0 62 16 133/72 (92) 97 07/08/17 08:00 98.1 65 18 126/71 (89) 98 I/O 07/08/17 07/08/17 07/08/17 07/09/17 07/09/17 07/09/17 07:00 15:00 23:00 07:00 15:00 23:00 Intake Total 100 ml 100 ml 100 ml 100 ml Balance 100 ml 100 ml 100 ml 100 ml Intake IV Total 100 ml 100 ml 100 ml 100 ml # Voids 1 1 Result Diagram: 07/08/1773907/08/1740 Objective Remarks GENERAL: This is a well-nourished, well-developed patient, in no apparent distress. CARDIOVASCULAR: Regular rate and rhythm without murmurs, gallops, or rubs. RESPIRATORY: Clear to auscultation. Breath sounds equal bilaterally. No wheezes , rales, or rhonchi. GASTROINTESTINAL: Abdomen soft, non-tender, nondistended. Normal active bowel sounds MUSCULOSKELETAL: Extremities without clubbing, cyanosis, or edema. NEURO: Alert & Oriented x4 to person, place, time, situation. Moves all ext x4 A/P Problem List: (1) Diverticulitis of intestine with abscess ICD Code: K57.80 - Diverticulitis of intestine, part unspecified, with perforation and abscess without bleeding Status: Acute Plan: Augmentin by mouth trial GI consultation Appreciated Continue IV/po narcotics for pain advance diet (2) Breast cancer in situ ICD Code: D05.90 - Unspecified type of carcinoma in situ of unspecified breast Plan: Patient will continue with outpatient follow-up with her oncologist Dr. childs, she is aware Discharge Planning Is stable discharge home in Homa Dillon MD Jul 09, 2017 07:31
[2017-07-09] MEDS ORDERED: AMOXICILLIN/CLAVULANATE K 875 MG TAB PO SCH (09:00)
[2017-07-09] MEDS: HEPARIN SODIUM - SQ 10,000 UNITS/ML VIAL SQ SCH ×2 (09:55→15:32)
[2017-07-09] MEDS: ACETAMINOPHEN/HYDROcodone 325 MG/7.5 MG TAB PO PRN ×2 (10:07→15:32)
--- NOTE | 2017-07-09 10:50 | HHI.GIFU ---
GI Follow-up Note Consult Follow-up Subjective: Patient laying in bed comfortably, no new complaints and feeling better. Starting to advance diet. Zosyn changed to oral Augmentin. Objective: PHYSICAL EXAMINATION: Vitals signs stable No fever CHEST: breathing nonlabored ABDOMEN: Soft, nondistended, less tender LLQ SKIN: warm and dry MEN'S DESIGNER: alert and oriented times three. Available Data (labs, X- Rays, Procedues) : I reviewed her CT with radiologist yesterday. ASSESSMENT/PLAN: 1. Acute diverticulitis with small abscess-if does well with oral Abx ok to discharge home tomorrow. I discussed a soft low residue diet with her. Will plan to repeat CT as outpt toward end of week. I advised her to call our office if sxs worsen. It was a pleasure seeing Kesha Triana Thank you for this consult. Entered by: Fortunato Gutierrez MD Jul 09, 2017 10:50
[2017-07-09 12:00] VITALS: BP 146/93; PULSE 63; RESP 18; TEMP 98; O2SAT 98
[2017-07-09 16:00] VITALS: BP 135/70; PULSE 70; RESP 18; TEMP 98.4; O2SAT 98
[2017-07-09] MEDS ORDERED: HYDR-3580 PO (17:01)
[2017-07-09] MEDS ORDERED: AMOX875T2 PO (17:01)
--- NOTE | 2017-07-09 17:02 | HHI.DCPOC ---
Discharge Care Plan Diagnosis: (1) Diverticulitis of intestine with abscess Goals to Promote Your Health * To prevent worsening of your condition and complications * To maintain your health at the optimal level Directions to Meet Your Goals Take your medications as prescribed Follow your dietary instruction Follow activity as directed Keep your appointments as scheduled Take your immunizations and boosters as scheduled If your symptoms worsen call your PCP, if no PCP go to Urgent Care Center or Emergency Room Smoking is Dangerous to Your Health. Avoid second hand smoke Call the 24-hour hour crisis hotline for domestic abuse at Homa Ann MD Jul 09, 2017 17:02
--- NOTE | 2017-07-09 17:04 | HHI.DS ---
Discharge Summary Admission Date Jul 07, 2017 at 11:21 Discharge Date: Jul 09, 2017 Admitting Diagnosis ACUTE DIVERTICULITIS (1) Diverticulitis of intestine with abscess ICD Code: K57.80 - Diverticulitis of intestine, part unspecified, with perforation and abscess without bleeding Status: Acute (2) Breast cancer in situ ICD Code: D05.90 - Unspecified type of carcinoma in situ of unspecified breast Procedures none Brief History - From Admission This patient very pleasant 71-year-old female with a history of diverticular disease who started having abdominal discomfort and nausea over 10 days ago. 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 She took 10 days of Flagyl and Cipro orally and noted that the pain got worse. She had intermittent fevers and chills. She says her temperature at home was 100.5 but she took Tylenol because her oncologist patient states she has breast cancer) told her not to let it get above 100.5. She presents now with worsening abdominal pain right side and with nausea and has reported the pain is a 10 out of 10. He is now 4 out of 10 after IV Dilaudid. Her nausea is better also after antiemetics. The patient's been admitted to the hospital with abdominal pain and is now by imaging known to have a very small abscess associated with acute diverticulitis. She is being treated for the same with IV antibiotics CBC/BMP: 07/08/17 0740 07/08/17 0740 Significant Findings Laboratory Tests Test 07/07/17 09:25 07/07/17 17:11 07/08/17 07:40 White Blood Count 13.2 TH/MM3 (4.0-11.0) Neutrophils (%) (Auto) 91.6 % (16.0-70.0) 83.8 % (16.0-70.0) Lymphocytes (%) (Auto) 5.6 % (9.0-44.0) Neutrophils # (Auto) 12.1 TH/MM3 (1.8-7.7) Lymphocytes # (Auto) 0.7 TH/MM3 (1.0-4.8) 0.8 TH/MM3 (1.0-4.8) Random Glucose 108 MG/DL (74-106) Albumin 3.3 GM/DL (3.4-5.0) Estimat Glomerular Filtration Rate 64 ML/MIN (>89) Urine Occult Blood TRACE (NEG) Red Blood Count 3.52 MIL/MM3 (4.00-5.30) Hemoglobin 10.5 GM/DL (11.6-15.3) Hematocrit 31.9 % (35.0-46.0) Mean Platelet Volume 6.7 FL (7.0-11.0) Calcium Level 8.1 MG/DL (8.5-10.1) Sodium Level 133 MEQ/L (136-145) PE at Discharge GENERAL: This is a well-nourished, well-developed patient, in no apparent distress. CARDIOVASCULAR: Regular rate and rhythm without murmurs, gallops, or rubs. RESPIRATORY: Clear to auscultation. Breath sounds equal bilaterally. No wheezes , rales, or rhonchi. GASTROINTESTINAL: Abdomen soft, non-tender, nondistended. Normal active bowel sounds MUSCULOSKELETAL: Extremities without clubbing, cyanosis, or edema. NEURO: Alert & Oriented x4 to person, place, time, situation. Moves all ext x4 Pt update on day of discharge please see progress note patient reevaluated due to marvelous improvement and tolerance of po meds and diet Hospital Course Patient is a 71-year-old female with a history of diverticulitis who did have increased symptoms with development of a very small intestinal abscess. Patient had IV antibiotics and was seen by gastroenterology. She is recommended for a longer course of antibiotics and to follow up with a repeat CT abdomen and pelvis post discharge. Patient did well with diet and with oral pain medications she was discharged home to follow-up as below Pt Condition on Discharge: Good Discharge Disposition: Discharge Home Discharge Time: > 30 minutes Discharge Instructions DIET: Follow Instructions for: As Tolerated, No Restrictions Activities you can perform: Regular-No Restrictions Follow up Referrals: Gastroenterology - 1 Week with Fortunato Banda MD New Orders: CT Abdomen W IV Contrast(Rout) - 3-5 Days New Medications: Amoxicillin-Clavulanate (Amoxicillin-Clavulanate) 875-125 mg Tab 875 MG PO Q12HR for Infection, #20 TAB not for use in CrCl <30 mL/minute Hydrocodone-Acetaminophen (Hydrocodone-Acetaminophen) 7.5-325 mg Tab 1 TAB PO Q6H PRN for pain 3-7, #30 TAB Continued Medications: Trastuzumab Inj (Herceptin Inj) 440 Mg Inj 1 INJECTION IM [chemo] () 1 BAG IV [id number] Homa Ann MD Jul 09, 2017 17:04
== END 2017-07-09 19:09 | disposition home or self-care (01) | DRG 392 ==
LOC: PHED 08:33 → PHEDA 11:21 → PH3B 12:20
PROVIDERS: ADMIT Anesthesiology Pain Medicine; ATTEND Anesthesiology Pain Medicine
DX: K57.20 Diverticulitis of large intestine with perforation and abscess without bleeding (principal); D05.91 Unspecified type of carcinoma in situ of right breast; Z87.891 Personal history of nicotine dependence; Z80.42 Family history of malignant neoplasm of prostate
CPT/HCPCS: 74177; 80048; 80053; 81001; 85025; 87040; 96365; 96375; 96376; J0295; J1170; J1642; J1644; J2405; J2543; J7030; Q9967

== ENCOUNTER 2017-07-13 22:45 | Inpatient (IN) | payer MEDICARE ==
[~2017-07-13] VITALS: Ht 170.2 cm; Wt 98.1 kg
[~2017-07-13 22:45] MED LIST changes: -FLOR250C PO; -IOHEXOL 180 MG/ML 20 ML VIAL (for RAD DIAG) OTHER ONE; -LEVA500T20 PO; -LIDOCAINE HCL 1% PF 30 ML VIAL ONE; -METR-1 PO; -MIDAZOLAM HCL 2 MG/2 ML VIAL ONE; -PROPOFOL 200 MG/20 ML AMP IV ONE; -TRIAMCINOLONE ACETONIDE 40 MG/ML VIAL ONE
[2017-07-13 22:48] VITALS: BP 157/83; PULSE 90; RESP 15; TEMP 98.5; O2SAT 98
[2017-07-13 23:52] VITALS: BP 120/78; PULSE 72; RESP 16; O2SAT 100
[2017-07-14] VITALS (7 sets, daily range): BP systolic 117–167; BP diastolic 59–73; PULSE 64–75; RESP 16–19; TEMP 95.6–97.5; O2SAT 97–100
[2017-07-14] MEDS ORDERED: LEVOFLOXACIN 750 MG PREMIX INJ 150 ML IV ONE
[2017-07-14] MEDS ORDERED: metroNIDAZOLE 500 MG INJ 100 ML IV ONE
--- NOTE | 2017-07-14 00:02 | PD ---
HPI Chief Complaint: Fever Time Seen by Provider: 23:44 Travel History International Travel<30 days: No Contact w/Intl Traveler<30days: No Traveled to known affect area: No History of Present Illness HPI 71-year-old male complains of left lower quadrant abdominal pain. Patient was admitted to [facility] July 07 and discharged July 09 with diagnosis of acute diverticulitis. Patient has been taking Augmentin since then for that. Patient states that she is has persistent left lower quadrant abdominal pain since discharge. Patient started having fever up to 101.7 today. Patient states that the pain is sharp pain localized to left lower quadrant of the abdomen. Patient denies any pain radiation. Patient denies any nausea vomiting diarrhea. Patient has history of invasive breast cancer involving the right breast status post lumpectomy and sentinel node biopsy. Patient on chemotherapy. Patient had CT scan abdomen and pelvis done today at [facility]. CT shows persistent diverticulitis of the descending colon with small pericolic abscess. Patient was advised to go to ED for evaluation and admission for IV antibiotic. PFSH Past Medical History Arthritis: Yes (right hip ) Asthma: Yes Cancer: Yes (breast cancer ) Cardiovascular Problems: No Chemotherapy: Yes Diabetes: No Diminished Hearing: No Diverticulitis: Yes Endocrine: No Gastrointestinal Disorders: Yes (diverticulitis) Genitourinary: No Hepatitis: No Hiatal Hernia: No Immune Disorder: No Implanted Vascular Access Dvce: Yes Musculoskeletal: Yes Neurologic: No Psychiatric: No Reproductive: No Respiratory: Yes Immunizations Current: No Radiation Therapy: No Thyroid Disease: No Tetanus Vaccination: Unknown ?: Not Past Surgical History Abdominal Surgery: Yes (gallbladder removal ) AICD: No Appendectomy: Yes Cardiac Surgery: No Cholecystectomy: Yes Ear Surgery: No Endocrine Surgery: No Eye Surgery: No Genitourinary Surgery: No Gynecologic Surgery: No Joint Replacement: No Oral Surgery: Yes (implant ) Pacemaker: No Thoracic Surgery: No Tonsillectomy: Yes Other Surgery: Yes Social History Alcohol Use: No Tobacco Use: No Substance Use: No Allergies-Medications (Allergen,Severity, Reaction): Coded Allergies: No Known Allergies (Unverified , 07/13/17) Reported Meds & Prescriptions Reported Meds & Active Scripts Active Hydrocodone-Acetaminophen 7.5-325 mg Tab 1 Tab PO Q6H PRN Amoxicillin-Clavulanate 875-125 mg Tab 875 Mg PO Q12HR not for use in CrCl <30 mL/minute Reported Herceptin Inj (Trastuzumab) 440 Mg Inj 1 Injection IM [chemo] 1 Bag IV [id number] Review of Systems General / Constitutional: Positive: Fever Eyes: No: Visual changes HENT: No: Headaches Cardiovascular: No: Chest Pain or Discomfort Respiratory: No: Shortness of Breath Gastrointestinal: Positive: Abdominal Pain Genitourinary: No: Dysuria Musculoskeletal: No: Pain Skin: No Rash Neurologic: No: Weakness Psychiatric: No: Depression Endocrine: No: Polydipsia Hematologic/Lymphatic: No: Easy Bruising Physical Exam Narrative GENERAL: Well-nourished, well-developed patient. SKIN: Focused skin assessment warm/dry. HEAD: Normocephalic. EYES: No scleral icterus. No injection or drainage. NECK: Supple, trachea midline. No JVD or lymphadenopathy. CARDIOVASCULAR: Regular rate and rhythm without murmurs, gallops, or rubs. RESPIRATORY: Breath sounds equal bilaterally. No accessory muscle use. GASTROINTESTINAL: Abdomen soft, nondistended. Patient has moderate tenderness on palpation left lower quadrant of the abdomen. No rebound tenderness. No mass. MUSCULOSKELETAL: No cyanosis, or edema. BACK: Nontender without obvious deformity. No CVA tenderness. Neurologic exam normal. Data Data Last Documented VS Vital Signs Date Time Temp Pulse Resp B/P (MAP) Pulse Ox O2 Delivery O2 Flow Rate FiO2 07/13/17 23:52 72 16 120/78 (92) 100 Room Air 07/13/17 22:48 98.5 Orders Orders Complete Blood Count With Diff (07/13/17 23:54) Comprehensive Metabolic Panel (07/13/17 23:54) Prothrombin Time / Inr (Pt) (07/13/17 23:54) Act Partial Throm Time (Ptt) (07/13/17 23:54) Blood Culture (07/13/17 23:54) Urinalysis - C+S If Indicated (07/13/17 23:54) Chest, Single Ap (07/13/17 23:54) Iv Access Insert/Monitor (07/13/17 23:54) Ecg Monitoring (07/13/17 23:54) Oximetry (07/13/17 23:54) Sodium Chlor 0.9% 1000 Ml Inj (Ns 1000 M (07/14/17 00:00) Levofloxacin 750 Mg Premix Inj (Levaquin (07/14/17 00:00) Metronidazole 500 Mg Inj (Flagyl 500 Mg (07/14/17 00:00) MDM Medical Decision Making Medical Screen Exam Complete: Yes Emergency Medical Condition: Yes Differential Diagnosis Differential diagnosis including acute diverticulitis, abscess, perforation. Narrative Course 71-year-old female with persistent left lower quadrant abdominal pain, history of diverticulitis, history of breast cancer on chemotherapy. She had fever today. Normal saline solution 70 cc an hour. Levaquin 750 mg IV. Flagyl 500 mg IV. Hugo Stewart MD Jul 14, 2017 00:02
[2017-07-14] MEDS ORDERED: LACTULOSE SYRUP 20 GM/30 ML CUP PO PRN (00:15)
[2017-07-14] MEDS ORDERED: SODIUM CHLORIDE 0.9% FLUSH 10 ML FLUSH IV FLUSH PRN (00:15)
[2017-07-14] MEDS ORDERED: ACETAMINOPHEN 325 MG TAB PO PRN (00:15)
[2017-07-14] MEDS ORDERED: BISACODYL 10 MG SUPP RECTAL PRN (00:15)
[2017-07-14] MEDS ORDERED: SENNOSIDES 8.6 MG TAB PO PRN (00:15)
[2017-07-14] MEDS ORDERED: NALOXONE HCL 0.4 MG/ML AMP IV PUSH PRN (00:15)
[2017-07-14] MEDS ORDERED: MAGNESIUM HYDROXIDE SUSP 30 ML CUP PO PRN (00:15)
[2017-07-14] MEDS ORDERED: ONDANSETRON HCL 4 MG/2 ML VIAL IVP PRN (00:15)
[2017-07-14] MEDS: SODIUM CHLOR 0.9% 1000 ML INJ 1,000 ML IV SCH ×6 (00:29→23:43)
[2017-07-14] MEDS: HEPARIN SODIUM - SQ 10,000 UNITS/ML VIAL SQ SCH ×3 (00:31→23:37)
[2017-07-14 00:40] LABS: HEMATOCRIT 30.4 % (35.0-46.0); MEAN CORPUSCULAR HEMOGLOBIN 31.7 PG (27.0-34.0); MEAN CORPUSCULAR HGB CONC 34.8 % (32.0-36.0); PLATELET COUNT 204 TH/MM3 (150-450); RED BLOOD COUNT 3.34 MIL/MM3 (4.00-5.30); RED CELL DISTRIBUTION WIDTH 12.5 % (11.6-17.2); WHITE BLOOD COUNT 2.8 TH/MM3 (4.0-11.0)
[2017-07-14 00:45] LABS: HEMO FLAGS AUTO DIFF
--- NOTE | 2017-07-14 00:50 | RADRPT ---
EXAM DATE/TIME: 07/14/2017 00:15 [place] COMPARISON: No previous studies available for comparison. INDICATIONS : Fever. MEDICAL HISTORY : Carcinoma, breast. SURGICAL HISTORY : Infusaport. Right sided lumpectomy. ENCOUNTER: Initial ACUITY: 1 day PAIN SCORE: 0/10 LOCATION: chest FINDINGS: A single view of the chest demonstrates the lungs to be symmetrically aerated without evidence of mas s, infiltrate or effusion. Jitfyw-j-Kdbk tip in superior vena cava. The cardiomediastinal contours ar e unremarkable. Osseous structures are intact. CONCLUSION: 1. Nvlvek-b-Dovm tip in superior vena cava. Tortuous aorta. No active disease. Nahum Avila MD on July 14, 2017 at 0:48 Board Certified Radiologist. This report was verified electronically.
[2017-07-14 00:52] LABS: APTT (PATIENT) 30.1 SEC (24.3-30.1); INTERNATIONAL NORMALIZED RATIO 1.1 RATIO; PROTHROMBIN TIME - PATIENT 11.8 SEC (9.8-11.6)
[2017-07-14] MEDS: ACETAMINOPHEN/HYDROcodone 325 MG/5 MG TAB PO PRN ×5 (00:56→22:24)
[2017-07-14 01:24] LABS: ALT (GPT) 43 U/L (10-53); ANION GAP 6 MEQ/L (5-15); AST (GOT) 24 U/L (15-37); BICARBONATE 26.7 MEQ/L (21.0-32.0); BLOOD UREA NITROGEN 10 MG/DL (7-18); CHLORIDE 101 MEQ/L (98-107); GLOMERULAR FILTRATION RATE 95 ML/MIN (>89); POTASSIUM 3.4 MEQ/L (3.5-5.1); SODIUM (NA) 134 MEQ/L (136-145)
[2017-07-14 01:26] LABS: ALKALINE PHOSPHATASE 83 U/L (45-117); TOTAL BILIRUBIN ADULT 0.5 MG/DL (0.2-1.0)
[2017-07-14 01:55] LABS: ATYPICAL LYMPHOCYTES 7 % (0-0); BANDS 16 % (0-6); BASOPHILS 1 % (0-2); METAMYELOCYTES 3 % (0-1); NEUTROPHIL # MANUAL DIFF 0.8 TH/MM3 (1.8-7.7); PLATELET ESTIMATE SMEAR NORMAL (NORMAL); PLATELET MORPHOLOGY NORMAL (NORMAL); POLYS (SEG NEUTROPHILS) 8 % (16-70); SCAN/DIFF FINAL DIFF MANUAL; WBC DIFF SAMPLE 100
[2017-07-14 01:57] LABS: DOHLE BODIES PRESENT (NONE SEEN)
[2017-07-14] MEDS: MORPHINE SULFATE 4 MG/ML INJ IV PUSH PRN ×2 (02:19→02:27)
[2017-07-14] MEDS: SODIUM CHLORIDE 0.9% FLUSH 10 ML FLUSH IV FLUSH SCH ×2 (07:47→20:25)
[2017-07-14] MEDS: metroNIDAZOLE 500 MG INJ 100 ML IV SCH ×3 (07:50→23:43)
[2017-07-14] MEDS: DOCUSATE SODIUM 50 MG/SENNA 8.6 MG TAB PO SCH ×2 (07:50→20:25)
[2017-07-14 12:30] LABS: HEMATOCRIT 26.6 % (35.0-46.0); MEAN CORPUSCULAR HEMOGLOBIN 31.8 PG (27.0-34.0); MEAN CORPUSCULAR HGB CONC 35.3 % (32.0-36.0); PLATELET COUNT 173 TH/MM3 (150-450); RED BLOOD COUNT 2.96 MIL/MM3 (4.00-5.30); RED CELL DISTRIBUTION WIDTH 12.2 % (11.6-17.2); WHITE BLOOD COUNT 2.3 TH/MM3 (4.0-11.0)
[2017-07-14 12:33] LABS: HEMO FLAGS AUTO DIFF
[2017-07-14 12:38] LABS: APTT (PATIENT) 28.8 SEC (24.3-30.1); INTERNATIONAL NORMALIZED RATIO 1.1 RATIO; PROTHROMBIN TIME - PATIENT 12.4 SEC (9.8-11.6)
[2017-07-14 12:51] LABS: TOTAL BILIRUBIN ADULT 0.4 MG/DL (0.2-1.0)
[2017-07-14 13:13] LABS: BANDS 16 % (0-6); BASOPHILS 1 % (0-2); CORRECTED NUCLEATED RBC 1 /100 WBC (0-0); METAMYELOCYTES 4 % (0-1); NEUTROPHIL # MANUAL DIFF 0.6 TH/MM3 (1.8-7.7); POLYS (SEG NEUTROPHILS) 8 % (16-70); WBC DIFF SAMPLE 100
[2017-07-14 13:14] LABS: DOHLE BODIES PRESENT (NONE SEEN); TOXIC GRANULATION 2+ (NORMAL)
[2017-07-14 13:15] LABS: SCAN/DIFF FINAL DIFF MANUAL
--- NOTE | 2017-07-14 16:44 | MH ---
cc: ALEAH OROSCO MD DATE OF ADMISSION: 07/14/2017 DATE OF : 10/05/1944 ADMITTING DOCTOR: Dr. Aleah Orosco PRIMARY CARE PHYSICIAN <<0:20>> REASON FOR ADMISSION Abdominal pain and high-grade fever. HISTORY OF PRESENT ILLNESS: The patient is very pleasant 71-year female with a past history of diverticular disease, also has history of breast cancer on chemotherapy. The patient was evaluated last time in the hospital for abdominal pain on July 07, After follow up the patient had a diverticulitis with a small abscess. The patient was seen and followed by GI doctor Solo. The patient was discharged once she was stabilized on a p.o. antibiotic. As per patient after discharge she continues to have some abdominal ache. She went to see her oncologist, who wanted to give her Herceptin but her blood count was low and he prescribed what seems like Neulasta to increase her white blood cell count. She got to two shots. Yesterday she had abdominal pain and she has diarrhea as well as fever high-grade 101.7. She went to the emergency room, in the emergency room was evaluated by the emergency room physician because of the recurrent abdominal pain, the abscess and high grade fever, was recommended for admission and the patient was admitted early this morning. At present the patient has no nausea or vomiting. She has some abdominal discomfort. On palpation she has tenderness, mostly on the left lower quadrant. As per patient she has some diarrhea. There is no other associated symptoms. PAST MEDICAL HISTORY 1. Diverticular disease 2. recently admitted for diverticulitis. 3. Breast cancer. 4. Positive history of tubal ligation. 5. Cholecystectomy. 6. Breast dissection. MEDICATIONS Reviewed please see markers ALLERGIES The patient has NO KNOWN DRUG ALLERGIES. REVIEW OF SYSTEMS As described in the history of present illness, otherwise negative for 10 systems. FAMILY HISTORY Mother from respiratory failure. Father from prostate cancer of prostate cancer. SOCIAL HISTORY The patient does not smoke or drink, does not do any drugs. PHYSICAL EXAMINATION IN GENERAL: The patient is alert and oriented x3 lying on bed without any apparent distress at present. VITAL SIGNS: The patient is afebrile, pulse is 78, respiration 16, blood pressure 136/62, pulse is 100 on room air. HEAD, EYES, EARS, NOSE, AND THROAT: Head is, normocephalic. Negative conjunctival icterus, unremarkable. NECK: Supple. No increased JVD. Negative thyromegaly. Central trachea. CHEST: Clear to auscultation. CARDIOVASCULAR SYSTEM: S1, S2, audible, unable to hear any S3, gallop. GASTROINTESTINAL: Abdomen soft, mostly tender in the left lower quadrant. No rebound, no guarding noted. No organomegaly. Positive bowel sounds. MUSCULOSKELETAL: Extremities no cyanosis or pedal edema appreciated. CENTRAL NERVOUS SYSTEM: Grossly intact. SKIN: Warm and moist. PSCYHIATRIC: Appropriate mood and affect. INVESTIGATIONS: Chest x-ray done yesterday showed Nhpeln-M-Ltpt tip in the superior vena cava, culture was done, no active disease. The patient had CT scan done yesterday at [facility], no report is available. LABORATORY DATA Shows PT 12.4, INR/APTT within normal limits. Potassium 3.4, sodium 134 otherwise BMP and LFTs within normal limits, Albumin 3.2. CBC shows WBC count 2.3, hemoglobin 9.7, hematocrit 26.6. Platelet count 173, bands 16, neutrophil percent 8, lymphocytes 56. ASSESSMENT 1. Diverticulitis causing abdominal pain. 2. High-grade fever likely secondary level. 3. Abdominal abscess with diverticulitis. 4. Breast cancer. 5. Leukopenia. 6. Anemia. 7. History of breast cancer on chemotherapy. PLAN 1. Admit to the floor. 2. IV hydration. 3. IV antibiotic. 4. Iron adjusted on p.r.n. basis. 5. Antiemetics on a p.r.n. basis. 6. Continue home medications as indicated. 7. Labs for tomorrow. 8. GI consultation. 9. Oncology consultation 10. Monitoring of laboratory data. 11. Condition discussed with the patient in detail. 12. Discussed with RN. 13. Further recommendations to follow as the patient progresses. Aleah Orosco MD JP/jim /3:31 PM /3:54 PM
[2017-07-14] MEDS: FILGRASTIM 480 MCG/1.6 ML VIAL SQ SCH (19:08)
[2017-07-14] MEDS: LEVOFLOXACIN 500 MG PREMIX INJ 100 ML IV SCH (22:24)
--- NOTE | 2017-07-14 23:14 | MB ---
cc: EDGARDO HAMMOND M.D. DATE OF CONSULTATION 07/14/17 REASON FOR CONSULTATION Consult requested by Dr. Orosco for evaluation of neutropenic fever in a patient who is on chemotherapy for breast cancer. HISTORY OF PRESENT ILLNESS Kesha is a 71-year-old female. She is under the care of my associate, Dr. Bone, for breast cancer. She is currently on TCH chemotherapy. The patient has a history of diverticulosis with diverticulitis which predates to the chemotherapy. She was admitted to [facility] in the first week of July with abdominal pain and she was diagnosed with acute diverticulitis. This was conservatively treated with the antibiotics. She was discharged to home on Augmentin. The patient had TCH chemotherapy cycle #2 last week which she tolerated well. However, when she came in 2 days ago for her Herceptin her blood counts were low and Herceptin was held. The patient was complaining of abdominal pain. A CAT scan of the abdomen and pelvis was ordered which was done at [facility] which showed persistent diverticulitis of the descending colon with a small pericolic abscess. The patient was advised to come to the emergency room for admission and need for IV antibiotics. The patient is admitted to the hospital. She was started on Flagyl I.V. and Levaquin IV antibiotics. CBC showed neutropenia. I have been asked to see her for further evaluation. The patient states that she had received two doses of Neupogen on Monday and . She was supposed to get the third injection today but she came into the emergency room. Her CBC showed white count 2.3, hemoglobin 9.4, hematocrit 26.6, platelet count is 173. Absolute neutrophil count is only 600. The patient has being complaining of weakness, tiredness, fatigue. She denies any chills. She does not have any fevers since she has been in the hospital since last night. She is still complaining of diffuse abdominal pain. She denies any diarrhea. She denies any cough or shortness of breath. The rest of the review of systems is negative. PAST MEDICAL HISTORY 1. Right breast cancer invasive carcinoma status post lumpectomy and sentinel lymph node sampling. ER positive, OH negative, HER2/royal antigen positive. The patient has been on TCH chemotherapy. 2. Diverticulosis with diverticulitis. 3. History of chronic cholecystitis with gallstones. PAST SURGICAL HISTORY Tqfexy-A-Yoiz placement, right breast lumpectomy with sentinel lymph node sampling, cholecystectomy, colonoscopy, tubal ligation, appendectomy. ALLERGIES None. MEDICATIONS Medications prior to coming to the hospital were: 1. Chemotherapy TCH. 2. Neupogen. 3. Augmentin antibiotic. FAMILY HISTORY Noncontributory. SOCIAL HISTORY Noncontributory. SOCIAL HISTORY The patient does not smoke cigarettes, does not drink alcohol. PHYSICAL EXAMINATION GENERAL: This is a well-developed, well-nourished white female in no apparent distress. VITAL SIGNS: Temperature 95.6, heart rate is 64, blood pressure 152/69, O2 saturation 100%. HEENT: PERRLA, EOMI, anicteric. No oral lesions are noted. NECK: No lymphadenopathy noted. LUNGS: Clear. No wheezing, rhonchi or rales. HEART: Heart is regular rate and rhythm. ABDOMEN: Abdomen is diffusely tender. No hyperactive bowel sounds noted. EXTREMITIES: No pedal edema. NEUROLOGY: Awake, alert, oriented times three. SKIN: No significant lesions are noted. ASSESSMENT 1. Right breast cancer status post lumpectomy and sentinel lymph node sampling. ER positive, OH negative, HER2/royal antigen positive. She has a T1 N0 M0 stage I breast cancer. Currently she is on adjuvant TCH chemotherapy. 2. Neutropenic fever from the chemotherapy. The most likely source is a GI tract ;diverticulitis with abscess. 3. History of diverticulosis, now she has persistent diverticulitis with pericolonic abscess. PLAN I have reviewed her available records and I had an extensive discussion with the patient regarding her blood test results. She had a CBC today which showed white count of 2.3, hemoglobin 9.4, hematocrit 26.6, platelet count is 173. The differential count showed that the absolute neutrophil count is only 600. She has some metamyelocytes and nucleated red cells. There is 2+ toxic granulation noted and D hle bodies are present. These are consistent with infection. The patient has been on IV Flagyl and IV Levaquin. GI has been consulted for the diverticulitis and pericolonic abscess. The patient had received 2 days of Neupogen. I will continue the Neupogen while she is in the hospital. She missed her dose this morning, therefore will give her Neupogen now and will continue everyday till her neutropenia resolve. Will monitor her CBC daily. The patient will be closely monitored for any bowel perforation which sometime happens with acute diverticulitis with pericolonic abscess. If the patient's symptoms does not improve then will consider getting ID consult. The patient has been afebrile since she has been in the hospital. Blood cultures have been obtained and the results of those are still pending. She had a chest x-ray last night which came back negative. I was going to transfer the patient to the oncology floor but the patient stated that tomorrow is her birthday and she is expecting a lot of family members to come in to celebrate her birthday. Therefore, she preferred to stay at her present room. Further recommendations to follow. Thank you for asking my opinion. Rehana Hammond MD /EO /10:15 PM /10:44 PM MTDJaxson
[2017-07-15] VITALS: BP 142/65; PULSE 79; RESP 17; TEMP 97.2; O2SAT 98
[2017-07-15] MEDS: ACETAMINOPHEN/HYDROcodone 325 MG/5 MG TAB PO PRN (03:43)
[2017-07-15] MEDS: SODIUM CHLOR 0.9% 1000 ML INJ 1,000 ML IV SCH ×2 (03:44→16:15)
[2017-07-15 04:17] LABS: HEMATOCRIT 27.3 % (35.0-46.0); MEAN CORPUSCULAR HEMOGLOBIN 31.6 PG (27.0-34.0); MEAN CORPUSCULAR HGB CONC 34.8 % (32.0-36.0); PLATELET COUNT 187 TH/MM3 (150-450); RED CELL DISTRIBUTION WIDTH 12.6 % (11.6-17.2); WHITE BLOOD COUNT 3.6 TH/MM3 (4.0-11.0)
[2017-07-15 04:19] LABS: HEMO FLAGS AUTO DIFF
[2017-07-15 04:25] LABS: BICARBONATE 24.2 MEQ/L (21.0-32.0); POTASSIUM 3.5 MEQ/L (3.5-5.1)
[2017-07-15 05:11] LABS: BANDS 16 % (0-6); CORRECTED NUCLEATED RBC 1 /100 WBC (0-0); METAMYELOCYTES 1 % (0-1); MYELOCYTES 1 % (0-0); NEUTROPHIL # MANUAL DIFF 1.7 TH/MM3 (1.8-7.7); POLYS (SEG NEUTROPHILS) 29 % (16-70); WBC DIFF SAMPLE 100
[2017-07-15 05:14] LABS: DOHLE BODIES PRESENT (NONE SEEN); PLATELET ESTIMATE SMEAR NORMAL (NORMAL); PLATELET MORPHOLOGY NORMAL (NORMAL); SCAN/DIFF FINAL DIFF MANUAL
[2017-07-15 08:00] VITALS: BP 127/62; PULSE 76; RESP 17; TEMP 96.4; O2SAT 100
[2017-07-15] MEDS: SODIUM CHLORIDE 0.9% FLUSH 10 ML FLUSH IV FLUSH SCH ×2 (09:00→21:00)
[2017-07-15] MEDS: DOCUSATE SODIUM 50 MG/SENNA 8.6 MG TAB PO SCH ×2 (09:00→21:00)
[2017-07-15] MEDS: metroNIDAZOLE 500 MG INJ 100 ML IV SCH ×2 (09:26→18:14)
[2017-07-15] MEDS: FILGRASTIM 480 MCG/1.6 ML VIAL SQ SCH (09:26)
--- NOTE | 2017-07-15 09:26 | HHI.PR ---
Subjective Remarks Patient has less pain No nausea vomiting Diarrhea No other complaint Review of systems a 10 point system otherwise unremarkable Objective Objective Results - Vital Signs Date Time Temp Pulse Resp B/P (MAP) Pulse Ox O2 Delivery O2 Flow Rate FiO2 07/15/17 08:00 96.4 76 17 127/62 (83) 100 07/15/17 00:00 97.2 79 17 142/65 (90) 98 07/14/17 20:00 96.8 75 17 136/73 (94) 98 07/14/17 16:00 95.6 64 16 152/69 (96) 100 07/14/17 12:00 96.7 70 16 136/62 (86) 100 I/O 07/14/17 07/14/17 07/14/17 07/15/17 07/15/17 07/15/17 06:59 14:59 22:59 06:59 14:59 22:59 Intake Total 490 ml 100 ml 600 ml 1440 ml Balance 490 ml 100 ml 600 ml 1440 ml Intake Oral 240 ml 500 ml 240 ml IV Total 250 ml 100 ml 100 ml 1200 ml # Voids 2 4 2 # Bowel Movements 3 Result Diagram: 07/15/17 0345 07/15/17 0345 Other Results Laboratory Tests Test 07/14/17 12:00 07/15/17 03:45 White Blood Count 2.3 3.6 Red Blood Count 2.96 3.00 Hemoglobin 9.4 9.5 Hematocrit 26.6 27.3 Mean Corpuscular Volume 90.0 91.0 Mean Corpuscular Hemoglobin 31.8 31.6 Mean Corpuscular Hemoglobin Concent 35.3 34.8 Red Cell Distribution Width 12.2 12.6 Platelet Count 173 187 Mean Platelet Volume 6.9 7.0 CBC Comment AUTO DIFF AUTO DIFF Differential Total Cells Counted 100 100 Neutrophils % (Manual) 8 29 Band Neutrophils % 16 16 Lymphocytes % 56 37 Monocytes % 15 16 Basophils % 1 Neutrophils # (Manual) 0.6 1.7 Metamyelocytes 4 1 Nucleated Red Blood Cells 1 1 Differential Comment FINAL DIFF MANUAL FINAL DIFF MANUAL Atypical Lymphocytes Toxic Granulation 2+ Dohle Bodies PRESENT PRESENT Prothrombin Time 12.4 Prothromb Time International Ratio 1.1 Activated Partial Thromboplast Time 28.8 Creatinine 0.60 0.62 Estimat Glomerular Filtration Rate 99 95 Lactic Acid Level 1.0 Total Bilirubin 0.4 Myelocytes 1 Platelet Estimate NORMAL Platelet Morphology Comment NORMAL Blood Urea Nitrogen 5 Random Glucose 79 Calcium Level 8.3 Sodium Level 139 Potassium Level 3.5 Chloride Level 108 Carbon Dioxide Level 24.2 Anion Gap 7 Date/Time Source Procedure Growth Status 07/14/17 00:15 Blood Peripheral Aerobic Blood Culture Pending Received 07/14/17 00:15 Blood Peripheral Anaerobic Blood Culture Pending Received Physical Exam Physical Exam IN GENERAL: The patient is alert and oriented x3 lying on bed without any apparent distress at present. VITAL SIGNS: Reviewed HEAD, EYES, EARS, NOSE, AND THROAT: Head is, normocephalic. Negative conjunctival icterus, unremarkable. NECK: Supple. No increased JVD. Negative thyromegaly. Central trachea. CHEST: Clear to auscultation. CARDIOVASCULAR SYSTEM: S1, S2, audible, unable to hear any S3, gallop. GASTROINTESTINAL: Abdomen soft, mildly tender in the left lower quadrant. No rebound, no guarding noted. No organomegaly. Positive bowel sounds. MUSCULOSKELETAL: Extremities no cyanosis or pedal edema appreciated. CENTRAL NERVOUS SYSTEM: Grossly intact. SKIN: Warm and moist. PSCYHIATRIC: Appropriate mood and affect. A/P Assessment and Plan 1. Diverticulitis causing abdominal pain. 2. High-grade fever likely secondary level. 3. Abdominal abscess with diverticulitis. 4. Breast cancer. 5. Leukopenia. 6. Anemia. 7. History of breast cancer on chemotherapy. PLAN 1. Discuss with GI on the. 2. IV hydration. 3. IV antibiotic. 4. Analgesics on p.r.n. basis. 5. Antiemetics on a p.r.n. basis. 6. Continue home medications as indicated. 7. Labs reviewed. 8. Potassium within normal limits. 9. Oncology consultation appreciated 10. Monitoring of laboratory data. 11. On Neupogen. 12. Anemia of chronic disease 13. Further recommendations to follow as the patient progresses. Discussed with patient Labs for tomorrow Oj Orosco MD Jul 15, 2017 09:26
--- NOTE | 2017-07-15 09:37 | HHI.GIFU ---
GI Follow-up Note Consult Follow-up Subjective: Patient laying in bed comfortably, no new complaints. No new fever or chill tolerating clear liq diet well. Objective: PHYSICAL EXAMINATION: Vitals signs stable No fever HEENT: Pupils round and reactive to light; normocephalic; atraumatic; no jaundice. Throat is clear. NECK: Neck is supple, no JVD, no lymphadenopathy. CHEST: Chest is clear to auscultation and percussion. CARDIAC: Regular rate and rhythm with no murmur gallop or rubs. ABDOMEN: Soft, nondistended, nontender; no hepatosplenomegaly; bowel sounds are present in all four quadrants. EXTREMITIES: No clubbing, cyanosis, or edema. SKIN: Normal; no rash; no jaundice. STEAM BLOCKER: No focal deficits; alert and oriented times three. Available Data (labs, X- Rays, Procedures) : reviewed. ASSESSMENT/PLAN: 1. Acute diverticulitis with abscess, without perforation- failed outpt oral therapy (this is 2nd admission for same episode) 2. Febrile illness due to above improved 3. Abdominal pain improved 4. BRCA - on chemo likely inhibiting rapid improvement from diverticulitis PLAN: 1. Continue IV ABX for the next several days for aggressive treatment 2. increase diet to full liquid then to soft as tolerated 3. Anticipate in hospital for iv abx over the weekend. It was a pleasure seeing Kesha Triana Thank you for this consult. Entered by: Mynor Bhagat MD Jul 15, 2017 09:37
--- NOTE | 2017-07-15 09:48 | PD.ONC.PN ---
Subjective Subjective Remarks Afebrile overnight. Patient states abdominal pain is improved today. Tolerating clear liquids, will try full liquids today. Sad to be in the hospital on her birthday. Objective Data Date Time Temp Pulse Resp B/P (MAP) Pulse Ox O2 Delivery O2 Flow Rate FiO2 07/15/17 08:00 96.4 76 17 127/62 (83) 100 07/15/17 00:00 97.2 79 17 142/65 (90) 98 07/14/17 20:00 96.8 75 17 136/73 (94) 98 07/14/17 16:00 95.6 64 16 152/69 (96) 100 07/14/17 12:00 96.7 70 16 136/62 (86) 100 07/15/17 07/15/17 07/15/17 07:00 15:00 23:00 Intake Total 1440 ml Balance 1440 ml Result Diagram: 07/15/17 0345 07/15/17 0345 Laboratory Results Laboratory Tests Test 07/14/17 12:00 07/15/17 03:45 White Blood Count 2.3 TH/MM3 3.6 TH/MM3 Red Blood Count 2.96 MIL/MM3 3.00 MIL/MM3 Hemoglobin 9.4 GM/DL 9.5 GM/DL Hematocrit 26.6 % 27.3 % Mean Corpuscular Volume 90.0 FL 91.0 FL Mean Corpuscular Hemoglobin 31.8 PG 31.6 PG Mean Corpuscular Hemoglobin Concent 35.3 % 34.8 % Red Cell Distribution Width 12.2 % 12.6 % Platelet Count 173 TH/MM3 187 TH/MM3 Mean Platelet Volume 6.9 FL 7.0 FL CBC Comment AUTO DIFF AUTO DIFF Differential Total Cells Counted 100 100 Neutrophils % (Manual) 8 % 29 % Band Neutrophils % 16 % 16 % Lymphocytes % 56 % 37 % Monocytes % 15 % 16 % Basophils % 1 % Neutrophils # (Manual) 0.6 TH/MM3 1.7 TH/MM3 Metamyelocytes 4 % 1 % Nucleated Red Blood Cells 1 /100 WBC 1 /100 WBC Differential Comment FINAL DIFF MANUAL FINAL DIFF MANUAL Atypical Lymphocytes % Toxic Granulation 2+ Dohle Bodies PRESENT PRESENT Prothrombin Time 12.4 SEC Prothromb Time International Ratio 1.1 RATIO Activated Partial Thromboplast Time 28.8 SEC Creatinine 0.60 MG/DL 0.62 MG/DL Estimat Glomerular Filtration Rate 99 ML/MIN 95 ML/MIN Lactic Acid Level 1.0 mmol/L Total Bilirubin 0.4 MG/DL Myelocytes 1 % Platelet Estimate NORMAL Platelet Morphology Comment NORMAL Blood Urea Nitrogen 5 MG/DL Random Glucose 79 MG/DL Calcium Level 8.3 MG/DL Sodium Level 139 MEQ/L Potassium Level 3.5 MEQ/L Chloride Level 108 MEQ/L Carbon Dioxide Level 24.2 MEQ/L Anion Gap 7 MEQ/L Culture Results Microbiology Date/Time Source Procedure Growth Status 07/14/17 00:15 Blood Peripheral Aerobic Blood Culture Pending Received 07/14/17 00:15 Blood Peripheral Anaerobic Blood Culture Pending Received 07/14/17 00:10 Blood Peripheral Aerobic Blood Culture Pending Received 07/14/17 00:10 Blood Peripheral Anaerobic Blood Culture Pending Received Administered Medications Medications (Trade) Dose Ordered Sig/Zahira Route PRN Reason Start Time Stop Time Status Last Admin Dose Admin Sodium Chloride 1,000 ml @ 100 mls/hr Q10H IV 07/14/17 00:15 07/15/17 03:44 Heparin Sodium (Porcine) (Heparin Inj) 5,000 units Q12H SQ 07/14/17 00:15 07/14/17 12:44 Acetaminophen/ Hydrocodone Bitart ([place] 5-325 Mg) 1 tab Q4H PRN PO PAIN SCALE 3 TO 5 07/14/17 00:15 07/15/17 03:43 Morphine Sulfate (Morphine Inj) 2 mg Q3H PRN IV PUSH pain 6-10 07/14/17 00:15 07/14/17 02:27 Levofloxacin/ Dextrose 100 ml @ 100 mls/hr Q24H IV 07/14/17 23:00 07/14/17 22:24 Metronidazole 100 ml @ 100 mls/hr Q8H IV 07/14/17 08:00 07/15/17 09:26 Filgrastim (Neupogen Inj) 480 mcg DAILY SQ 07/14/17 18:30 07/15/17 09:26 Objective Remarks GENERAL: Pleasant elderly female upright in bed in nad. SKIN: Warm and dry. port in place, right chest wall. HEAD: Normocephalic. EYES: No injection or drainage. NECK: Supple, trachea midline. CARDIOVASCULAR: Regular rate and rhythm RESPIRATORY: Breath sounds equal bilaterally. No accessory muscle use. GASTROINTESTINAL: Abdomen soft, non-tender, nondistended. EXTREMITIES: No cyanosis NEUROLOGICAL: No obvious focal deficit. Awake, alert, and oriented x3. Assessment/Plan Problem List: (1) Neutropenic fever ICD Codes: D70.9 - Neutropenia, unspecified; R50.81 - Fever presenting with conditions classified elsewhere Plan: 07/15: continue Neupogen. monitor CBC, continue antibiotics --on antibiotics --on Neupogen --BC pending (2) Abdominal pain ICD Codes: R10.9 - Unspecified abdominal pain Plan: --surgery following, started on full liquids today. --CT ab/pelvis showed persistent diverticulitis of the descending colon with a small pericolic abscess. (3) Breast cancer in situ ICD Codes: D05.90 - Unspecified type of carcinoma in situ of unspecified breast Plan: --had [facility] chemotherapy cycle #2 last week, 07/05/17, tolerated well. --came in 2 days ago for Herceptin her blood counts were low and Herceptin was held. --Right breast cancer status post lumpectomy and sentinel lymph node sampling. --ER positive, [place] negative, HER2/royal antigen positive. --has a T1 N0 M0 stage I breast cancer. Assessment 72y/o female with breast cancer admitted with neutropenic fever h/o Right breast cancer invasive carcinoma status post lumpectomy and sentinel lymph node sampling. ER positive, [place] negative, HER2/royal antigen positive. The patient has been on [facility] chemotherapy. Diverticulosis with diverticulitis. History of chronic cholecystitis with gallstones. Attending Statement abd pain has improved. Less tender. WBC is coming up on neupogen. DR Andrade input noted. The exam, history, and the medical decision-making described in the above note were completed with the assistance of the mid-level provider. I reviewed and agree with the findings presented. I attest that I had a [id number] encounter with the patient on the same day, and personally performed and documented my assessment and findings in the medical record. Majo Linares Jul 15, 2017 09:48 Vibha Hammond MD Jul 15, 2017 19:57
[2017-07-15] MEDS: HEPARIN SODIUM - SQ 10,000 UNITS/ML VIAL SQ SCH (11:58)
[2017-07-15 12:00] VITALS: BP 120/88; PULSE 77; RESP 17; TEMP 97.5; O2SAT 98
--- NOTE | 2017-07-15 13:00 | MB ---
cc: CARLOS TROY M.D.,OTONIEL FULLER DATE OF CONSULTATION: 07/15/2017. REASON FOR CONSULTATION: Recurrent diverticulitis. HISTORY OF PRESENT ILLNESS: This is a very pleasant 72-year-old woman well-known to me after previous gallbladder surgery and previous breast cancer surgery who has been under the care of Dr. Bone and has been receiving, I believe, [facility] chemotherapy. She was admitted last week with abdominal pain and acute diverticulitis. She was treated with antibiotics and discharged home on Augmentin. Follow up chemotherapy was performed and she developed recurrent abdominal pain and a CT showed diverticulitis with a small pericolic abscess. She was advised to come to the emergency department for IV antibiotics. She was treated with antibiotics and a surgical consultation was requested. The patient indicates she feels a little bit better. She had some difficulty with sleeping last night after her Neupogen shot. She has persistent left lower abdominal tenderness. Review of her CT scan demonstrates relative focal area of the distal descending colon involved with inflammatory changes and small pericolic abscess. There is no free air or free fluid. The distal sigmoid appears uninvolved. ALLERGIES: NO KNOWN DRUG ALLERGIES. PAST MEDICAL HISTORY: Her previous medical problems include: 1. Diverticulitis. 2. History of gallbladder surgery. 3. History of breast cancer on the right side with breast conservation therapy. MEDICATIONS: Her routine medications really are none. She is on antibiotics. SOCIAL HISTORY She has had occasional alcohol use. Occasional caffeine use. She is a former smoker. She is . She works in real estate. FAMILY HISTORY: Family history is significant for respiratory failure in her mother who lived to 87 and prostate in her father who lived to 84. REVIEW OF SYSTEMS: On review of systems, she wears corrective lenses for vision. She has had the recurrent left lower quadrant abdominal pain and diarrhea without nausea and she did have fever. PHYSICAL EXAMINATION: GENERAL: She is a well-developed, well-nourished woman who is in no acute distress. She has thinning hair from chemotherapy. VITAL SIGNS: Temperature is 96.4, pulse 76, respiratory rate 17, blood pressure 127/62, O2 sats 97-100% on room air. HEAD, EYES, EARS, NOSE, THROAT: She is normocephalic, atraumatic. Her pupils are equal, round, and reactive to light. Her sclerae are anicteric. Her oropharynx is clear without mucosal lesions. She has good dentition. NECK: Neck is supple without adenopathy. She has a midline trachea. No jugular venous distention. No thyromegaly. LUNGS: Clear and equal anteriorly bilaterally. HEART: Heart sounds are regular without obvious murmurs, rubs or gallops. CHEST: She has a right side port in place that is accessed and being used. There is no surrounding erythema or edema or induration. ABDOMEN: Abdomen soft and nondistended. She has healed scars from laparoscopy. She has tenderness in the left mid to lower abdomen which is focal. She has no rebound or guarding. She has normal bowel sounds and no abdominal bruits. EXTREMITIES: No cyanosis, clubbing or edema. She has equal radial and dorsalis pedis pulses. NEUROLOGIC: She is awake, alert and oriented with equal strong bilateral crucible packer strength and no gross motor or sensory deficit. LABORATORY STUDIES: White count is increased up to 3.6 with 29% neutrophils and 16% bands. Her hemoglobin is 9.5. Her platelet count is 187,000. Coagulation studies are normal. Her INR is 1.1. Potassium is 3.5, creatinine 0.62. Her albumin was 3.2 on admission. Blood cultures are all pending at this time. IMAGING STUDIES: Her imaging studies include a chest x-ray which showed no active disease and a previous CT scan which shows the acute inflammatory changes. ASSESSMENT: A 72-year-old woman undergoing [facility] chemotherapy for right breast cancer who has been neutropenic and has acute recurrent episodes of diverticulitis requiring admission twice in the last week to ten days. She is improving. It is her birthday today. I did discuss with her the potential for continued antibiotic therapy maybe a little longer intravenously before making a transition to oral antibiotics in preparation for discharge home. Given the fact she has had recurrent episodes of diverticulitis, and she is undergoing chemotherapy, we would have to get a little creative as far as decisions on when, and if, to pursue surgical resection of the area of concern. She understands, but wishes things were a little more well-defined. We will follow along and be available. I will discuss with Dr. Bone, her medical oncologist, at the beginning of the week on how he believes we should proceed. MD DIVINA Higgins/DIAMOND /9:20 AM /12:44 PM
[2017-07-15 16:00] VITALS: BP 123/65; PULSE 82; RESP 17; TEMP 97; O2SAT 98
[2017-07-15 20:00] VITALS: BP 149/67; PULSE 72; RESP 20; TEMP 96.3; O2SAT 98
[2017-07-15] MEDS ORDERED: TEMAZEPAM 15 MG CAP PO PRN (20:30)
[2017-07-15] MEDS: LEVOFLOXACIN 500 MG PREMIX INJ 100 ML IV SCH (21:16)
[2017-07-16] VITALS: BP 130/61; PULSE 80; RESP 18; TEMP 97.7; O2SAT 99
[2017-07-16] MEDS: HEPARIN SODIUM - SQ 10,000 UNITS/ML VIAL SQ SCH ×2 (00:15→12:15)
[2017-07-16] MEDS: SODIUM CHLOR 0.9% 1000 ML INJ 1,000 ML IV SCH (02:15)
[2017-07-16 08:00] VITALS: BP 123/65; PULSE 71; RESP 17; TEMP 97.3; O2SAT 99
[2017-07-16] MEDS: DOCUSATE SODIUM 50 MG/SENNA 8.6 MG TAB PO SCH (08:54)
[2017-07-16] MEDS: FILGRASTIM 480 MCG/1.6 ML VIAL SQ SCH (08:54)
[2017-07-16] MEDS: SODIUM CHLORIDE 0.9% FLUSH 10 ML FLUSH IV FLUSH SCH (08:54)
[2017-07-16] MEDS: metroNIDAZOLE 500 MG INJ 100 ML IV SCH ×2 (08:54)
--- NOTE | 2017-07-16 10:16 | HHI.PR ---
Subjective Subjective Notes feels much better, would like to go home if possible. Objective Vitals/I&O Vital Signs Date Time Temp Pulse Resp B/P (MAP) Pulse Ox O2 Delivery O2 Flow Rate FiO2 07/16/17 08:00 97.3 71 17 123/65 (84) 99 07/14/17 01:58 Room Air Labs Date/Time Source Procedure Growth Status 07/14/17 00:15 Blood Peripheral Aerobic Blood Culture - Preliminary NO GROWTH IN 1 DAY Resulted 07/14/17 00:15 Blood Peripheral Anaerobic Blood Culture - Preliminary NO GROWTH IN 1 DAY Resulted Abdomen: Non-distended, Non-tender, BS normal A/P Assessment and Plan recurrent diverticulitis doing well change to po abx ok to dc from surgical standpoint FU dr oscar in office. Juan F Mitchell MD Jul 16, 2017 10:16
[2017-07-16 10:55] LABS: AUTOMATED NEUTROPHIL # 10.8 TH/MM3 (1.8-7.7); BASOPHIL % 0.2 % (0.0-2.0); LYMPHOCYTE # 2.4 TH/MM3 (1.0-4.8); MEAN CELL VOLUME 91.4 FL (80.0-100.0); MEAN CORPUSCULAR HEMOGLOBIN 31.5 PG (27.0-34.0); MEAN CORPUSCULAR HGB CONC 34.4 % (32.0-36.0); MONO % 11.4 % (0.0-8.0); NEUT % 72.4 % (16.0-70.0); PLATELET COUNT 220 TH/MM3 (150-450); RED BLOOD COUNT 3.39 MIL/MM3 (4.00-5.30); RED CELL DISTRIBUTION WIDTH 12.9 % (11.6-17.2); WHITE BLOOD COUNT 14.9 TH/MM3 (4.0-11.0)
[2017-07-16 10:56] LABS: HEMO FLAGS AUTO DIFF
--- NOTE | 2017-07-16 11:08 | PD.ONC.PN ---
Subjective Subjective Remarks Afebrile overnight. Feeling a bit better today. Abdominal pain improved. tolerating full liquid diet. no diarrhea. Objective Data Date Time Temp Pulse Resp B/P (MAP) Pulse Ox O2 Delivery O2 Flow Rate FiO2 07/16/17 08:00 97.3 71 17 123/65 (84) 99 07/16/17 00:00 97.7 80 18 130/61 (84) 99 07/15/17 20:00 96.3 72 20 149/67 (94) 98 07/15/17 16:00 97.0 82 17 123/65 (84) 98 07/15/17 12:00 97.5 77 17 120/88 (99) 98 07/16/17 07/16/17 07/16/17 07:00 15:00 23:00 Intake Total 780 ml Balance 780 ml Result Diagram: 07/16/17 1030 07/15/17 0345 Laboratory Results Laboratory Tests Test 07/16/17 10:30 White Blood Count 14.9 TH/MM3 Red Blood Count 3.39 MIL/MM3 Hemoglobin 10.7 GM/DL Hematocrit 31.0 % Mean Corpuscular Volume 91.4 FL Mean Corpuscular Hemoglobin 31.5 PG Mean Corpuscular Hemoglobin Concent 34.4 % Red Cell Distribution Width 12.9 % Platelet Count 220 TH/MM3 Mean Platelet Volume 6.7 FL Neutrophils (%) (Auto) 72.4 % Lymphocytes (%) (Auto) 16.0 % Monocytes (%) (Auto) 11.4 % Eosinophils (%) (Auto) 0.0 % Basophils (%) (Auto) 0.2 % Neutrophils # (Auto) 10.8 TH/MM3 Lymphocytes # (Auto) 2.4 TH/MM3 Monocytes # (Auto) 1.7 TH/MM3 Eosinophils # (Auto) 0.0 TH/MM3 Basophils # (Auto) 0.0 TH/MM3 CBC Comment AUTO DIFF Culture Results Microbiology Date/Time Source Procedure Growth Status 07/14/17 00:15 Blood Peripheral Aerobic Blood Culture - Preliminary NO GROWTH IN 2 DAYS Resulted 07/14/17 00:15 Blood Peripheral Anaerobic Blood Culture - Preliminary NO GROWTH IN 2 DAYS Resulted 07/14/17 00:10 Blood Peripheral Aerobic Blood Culture - Preliminary NO GROWTH IN 2 DAYS Resulted 07/14/17 00:10 Blood Peripheral Anaerobic Blood Culture - Preliminary NO GROWTH IN 2 DAYS Resulted Administered Medications Medications (Trade) Dose Ordered Sig/Zahira Route PRN Reason Start Time Stop Time Status Last Admin Dose Admin Sodium Chloride 1,000 ml @ 100 mls/hr Q10H IV 07/14/17 00:15 07/16/17 02:15 Acetaminophen (Tylenol) 650 mg Q4H PRN PO TEMP > 100.4 07/14/17 00:15 07/16/17 04:13 Heparin Sodium (Porcine) (Heparin Inj) 5,000 units Q12H SQ 07/14/17 00:15 07/14/17 12:44 Acetaminophen/ Hydrocodone Bitart ([place] 5-325 Mg) 1 tab Q4H PRN PO PAIN SCALE 3 TO 5 07/14/17 00:15 07/15/17 03:43 Morphine Sulfate (Morphine Inj) 2 mg Q3H PRN IV PUSH pain 6-10 07/14/17 00:15 07/14/17 02:27 Filgrastim (Neupogen Inj) 480 mcg DAILY SQ 07/14/17 18:30 07/16/17 08:54 Temazepam (Restoril) 15 mg HS PRN PO INSOMNIA 07/15/17 20:30 07/15/17 21:16 Objective Remarks GENERAL: Pleasant elderly female upright in bed in nad. SKIN: Warm and dry. HEAD: Normocephalic. EYES: No injection or drainage. NECK: Supple, trachea midline. CARDIOVASCULAR: Regular rate and rhythm RESPIRATORY: Breath sounds equal bilaterally. No accessory muscle use. GASTROINTESTINAL: Abdomen soft, non-tender, nondistended. EXTREMITIES: No cyanosis NEUROLOGICAL: awake and alert, normal speech. Assessment/Plan Problem List: (1) Neutropenic fever ICD Codes: D70.9 - Neutropenia, unspecified; R50.81 - Fever presenting with conditions classified elsewhere Plan: 07/16: d/c Neupogen. monitor CBC, continue antibiotics --on antibiotics --BC no growth (2) Abdominal pain ICD Codes: R10.9 - Unspecified abdominal pain Plan: --surgery following, started on full liquids today. --CT ab/pelvis showed persistent diverticulitis of the descending colon with a small pericolic abscess. (3) Breast cancer in situ ICD Codes: D05.90 - Unspecified type of carcinoma in situ of unspecified breast Plan: --had [facility] chemotherapy cycle #2 last week, 07/05/17, tolerated well. --came in 2 days ago for Herceptin her blood counts were low and Herceptin was held. --Right breast cancer status post lumpectomy and sentinel lymph node sampling. --ER positive, [place] negative, HER2/royal antigen positive. --has a T1 N0 M0 stage I breast cancer. Assessment 72y/o female with breast cancer admitted with neutropenic fever h/o Right breast cancer invasive carcinoma status post lumpectomy and sentinel lymph node sampling. ER positive, [place] negative, HER2/royal antigen positive. The patient has been on [facility] chemotherapy. Diverticulosis with diverticulitis. History of chronic cholecystitis with gallstones. Attending Statement The exam, history, and the medical decision-making described in the above note were completed with the assistance of the mid-level provider. I reviewed and agree with the findings presented. I attest that I had a [id number] encounter with the patient on the same day, and personally performed and documented my assessment and findings in the medical record. Abd pain has resolved. Feels better Neutropenia has resolved. Ok to d/c Majo Linares Jul 16, 2017 11:08 Vibha Hammond MD Jul 16, 2017 18:03
[2017-07-16 11:37] LABS: BANDS 34 % (0-6); METAMYELOCYTES 1 % (0-1); MYELOCYTES 2 % (0-0); NEUTROPHIL # MANUAL DIFF 11.8 TH/MM3 (1.8-7.7); POLYS (SEG NEUTROPHILS) 42 % (16-70); WBC DIFF SAMPLE 100
[2017-07-16 11:38] LABS: TOXIC GRANULATION 2+ (NORMAL)
[2017-07-16 11:39] LABS: PLATELET ESTIMATE SMEAR NORMAL (NORMAL); PLATELET MORPHOLOGY NORMAL (NORMAL); SCAN/DIFF FINAL DIFF MANUAL
[2017-07-16 11:44] LABS: ALT (GPT) 29 U/L (10-53); ANION GAP 8 MEQ/L (5-15); AST (GOT) 16 U/L (15-37); BICARBONATE 24.6 MEQ/L (21.0-32.0); BLOOD UREA NITROGEN 2 MG/DL (7-18); CHLORIDE 111 MEQ/L (98-107); GLOMERULAR FILTRATION RATE 77 ML/MIN (>89); POTASSIUM 3.2 MEQ/L (3.5-5.1); SODIUM (NA) 144 MEQ/L (136-145)
[2017-07-16 11:46] LABS: ALKALINE PHOSPHATASE 109 U/L (45-117); TOTAL BILIRUBIN ADULT 0.3 MG/DL (0.2-1.0)
[2017-07-16 12:00] VITALS: BP 142/66; PULSE 75; RESP 17; TEMP 95.7; O2SAT 100
[2017-07-16] MEDS ORDERED: POTASSIUM CHLORIDE 20 MEQ CONTROLLED RELEASE TAB PO ONE (12:45)
--- NOTE | 2017-07-16 12:52 | HHI.PR ---
Subjective Remarks Patient has no pain No nausea vomiting no Diarrhea No other complaint feeling good tolerating food really well walking around Review of systems a 10 point system otherwise unremarkable Objective Objective Results - Vital Signs Date Time Temp Pulse Resp B/P (MAP) Pulse Ox O2 Delivery O2 Flow Rate FiO2 07/16/17 12:00 95.7 75 17 142/66 (91) 100 07/16/17 08:00 97.3 71 17 123/65 (84) 99 07/16/17 00:00 97.7 80 18 130/61 (84) 99 07/15/17 20:00 96.3 72 20 149/67 (94) 98 07/15/17 16:00 97.0 82 17 123/65 (84) 98 I/O 07/15/17 07/15/17 07/15/17 07/16/17 07/16/17 07/16/17 06:59 14:59 22:59 06:59 14:59 22:59 Intake Total 1440 ml 100 ml 2417 ml 780 ml Balance 1440 ml 100 ml 2417 ml 780 ml Intake Oral 240 ml 1000 ml 480 ml IV Total 1200 ml 100 ml 1417 ml 300 ml # Voids 2 6 3 # Bowel Movements 6 0 Result Diagram: 07/16/17 1030 07/16/17 1030 Other Results Laboratory Tests Test 07/16/17 10:30 White Blood Count 14.9 Red Blood Count 3.39 Hemoglobin 10.7 Hematocrit 31.0 Mean Corpuscular Volume 91.4 Mean Corpuscular Hemoglobin 31.5 Mean Corpuscular Hemoglobin Concent 34.4 Red Cell Distribution Width 12.9 Platelet Count 220 Mean Platelet Volume 6.7 Neutrophils (%) (Auto) 72.4 Lymphocytes (%) (Auto) 16.0 Monocytes (%) (Auto) 11.4 Eosinophils (%) (Auto) 0.0 Basophils (%) (Auto) 0.2 Neutrophils # (Auto) 10.8 Lymphocytes # (Auto) 2.4 Monocytes # (Auto) 1.7 Eosinophils # (Auto) 0.0 Basophils # (Auto) 0.0 CBC Comment AUTO DIFF Differential Total Cells Counted 100 Neutrophils % (Manual) 42 Band Neutrophils % 34 Lymphocytes % 11 Monocytes % 10 Neutrophils # (Manual) 11.8 Metamyelocytes 1 Myelocytes 2 Differential Comment FINAL DIFF MANUAL Toxic Granulation 2+ Platelet Estimate NORMAL Platelet Morphology Comment NORMAL Blood Urea Nitrogen 2 Creatinine 0.74 Random Glucose 92 Total Protein 6.5 Albumin 3.1 Calcium Level 8.7 Alkaline Phosphatase 109 Aspartate Amino Transf (AST/SGOT) 16 Alanine Aminotransferase (ALT/SGPT) 29 Total Bilirubin 0.3 Sodium Level 144 Potassium Level 3.2 Chloride Level 111 Carbon Dioxide Level 24.6 Anion Gap 8 Estimat Glomerular Filtration Rate 77 Date/Time Source Procedure Growth Status 07/14/17 00:15 Blood Peripheral Aerobic Blood Culture - Preliminary NO GROWTH IN 2 DAYS Resulted 07/14/17 00:15 Blood Peripheral Anaerobic Blood Culture - Preliminary NO GROWTH IN 2 DAYS Resulted Physical Exam Physical Exam IN GENERAL: The patient is alert and oriented x3 lying on bed without any apparent distress at present. VITAL SIGNS: Reviewed HEAD, EYES, EARS, NOSE, AND THROAT: Head is, normocephalic. Negative conjunctival icterus, unremarkable. NECK: Supple. No increased JVD. Negative thyromegaly. Central trachea. CHEST: Clear to auscultation. CARDIOVASCULAR SYSTEM: S1, S2, audible, unable to hear any S3, gallop. GASTROINTESTINAL: Abdomen soft, nontender. No rebound, no guarding noted. No organomegaly. Positive bowel sounds. MUSCULOSKELETAL: Extremities no cyanosis or pedal edema appreciated. CENTRAL NERVOUS SYSTEM: Grossly intact. SKIN: Warm and moist. PSCYHIATRIC: Appropriate mood and affect. A/P Assessment and Plan 1. Diverticulitis causing abdominal pain. 2. High-grade fever likely secondary level. 3. Abdominal abscess with diverticulitis. 4. Breast cancer. 5. Leukopenia. 6. Anemia. 7. History of breast cancer on chemotherapy. PLAN 1. Discuss with GI rita to go home today on po abx for 14 days 2. IV hydration. 3. po antibiotic. 4. Analgesics on p.r.n. basis. 5. Antiemetics on a p.r.n. basis. 6. Continue home medications as indicated. 7. Labs reviewed. 8. Potassium within normal limits. 9. Oncology consultation/ input appreciated 10. Monitoring of laboratory data. 11. On Neupogen. wbc improved 12. Anemia of chronic disease 13. sx input and help marion labs reviewed overall stable willdc home to follow pcp and gi Oj Orosco MD Jul 16, 2017 12:52
[2017-07-16] MEDS ORDERED: METR-1 PO (12:54)
[2017-07-16] MEDS ORDERED: FLOR250C PO (12:54)
[2017-07-16] MEDS ORDERED: LEVA500T20 PO (12:54)
[2017-07-16] MEDS ORDERED: metroNIDAZOLE 500 MG TAB PO SCH (14:00)
--- NOTE | 2017-07-17 08:08 | MB ---
cc: MAYCOL MON DATE OF CONSULTATION: 07/14/2017. REASON FOR CONSULTATION: Abdominal pain, recurrent diverticulitis. REFERRING PHYSICIAN: Oj Orosco MD. PRIMARY FERMENTER WINE: Fortunato Banda MD. HISTORY OF PRESENT ILLNESS: This is a very pleasant 71-year-old female with a history of diverticulosis in the past and a recent diagnosis of breast cancer undergoing chemotherapy. Her last chemotherapy was on July 05. She was recently hospitalized for an episode of abdominal pain, fevers, chills. On July 07, she underwent workup at [facility] and was found to have acute diverticulitis with a small abscess. She was followed during the admission and treated with IV antibiotics and with improvement of her symptoms, she was discharged on a ten-day course of Augmentin. She continued her antibiotic course. She underwent a repeat CT scan on July 13, 2017, which was significant for a persistent acute diverticulitis involving the distal descending colon with a small pericolic abscess measuring 2.3 x 2.2 cm slightly improved from the CT scan 07/07/2017. She continued to have abdominal pain intermittently and has had some loose stools but denies overt diarrhea. Yesterday she began having worsening of her pain and began having high fevers, T-max measuring 101.7. Due to this, she was advised by her oncologists appropriately to come to the emergency room for further workup and management. In the emergency room, she was appropriately worked up and admitted for further evaluation. GI was consulted for help in the management. She currently has no nausea or vomiting. No chills. She does have intermittent fevers and abdominal pain. She has not had any new diarrhea or hematochezia or melena. PAST MEDICAL HISTORY: 1. Breast cancer currently on chemotherapy. 2. History of diverticulosis with multiple diverticulitis attacks in the past. PAST SURGICAL HISTORY: 1. Cholecystectomy in 2016. 2. Appendectomy. 3. Recent right breast lumpectomy. ALLERGIES: NO KNOWN DRUG ALLERGIES. HOME MEDICATIONS: Please see the MAR for a complete accurate list. FAMILY HISTORY: No GI malignancies. SOCIAL HISTORY: . Denies any tobacco use or any alcohol use. REVIEW OF SYSTEMS: A twelve-point review of systems was obtained and was negative or noncontributory except for the above-mentioned in the history of present illness. PHYSICAL EXAMINATION: VITAL SIGNS: 95.6, heart rate of 64, respirations 16, blood pressure 152/69, 100% on room air. GENERAL: Alert oriented and in no acute distress. HEAD, EYES, EARS, NOSE, THROAT: Mucosa moist and pink. Normocephalic and atraumatic. NECK: The neck is supple. Nontender. No jugular venous distention noted. No cervical lymphadenopathy identified. CARDIOVASCULAR: Regular rate and rhythm. No murmurs heard. LUNGS: Lungs are clear to auscultation. Respirations are nonlabored. No wheezing heard. ABDOMEN: Abdomen soft and nondistended. It is tender to palpation predominantly on the left lower quadrant with some rebound and voluntary guarding appreciated. No flank or umbilical ecchymosis noted. Hepatosplenomegaly not appreciated. GENITOURINARY: No costovertebral angle tenderness noted. MUSCULOSKELETAL: Normal range of motion of the upper and lower extremities. NEUROLOGIC: Alert and oriented x3. No focal deficits. PSYCHIATRIC: Cooperative. Appropriate mood and affect. LABS: WBCs 2.3, hemoglobin 9.4, platelet count of 173,000. Sodium 139, potassium 3.4, chloride 101, bicarbonate 26, BUN 10, creatinine 0.62, lactic acid 1.0, calcium 8.7, total bilirubin 0.5, AST 24, ALT 43, alkaline phosphatase 83, total protein 7.1. INR 1.1. IMAGING STUDIES: Imaging down at [facility] on July 13, 2017 shows a persistent acute diverticulitis involving the distal descending colon with small pericolic abscess measuring 2.3 x 2.2 cm. The findings appear slightly improved compared to 07/07/17. Prominent uterus with endometrial prominence, 8 mm hepatic cyst in the left lobe. IMPRESSION: 1. Acute diverticulitis with a small pericolic abscess without evidence of bleeding or an overt perforation. 2. Abdominal pain secondary to above. 3. History of breast cancer currently on chemotherapy. 4. Leukopenia likely secondary to chemotherapy. RECOMMENDATIONS: 1. Recommend NPO or with ice chips. 2. If pain slowly improves, then can consider adding a clear liquid diet. 3. Aggressive IV antibiotics including Levaquin 500 milligrams IV piggyback q 24 hours and Flagyl 500 milligrams IV piggyback q. 8 hours. 4. Recommend surgical consultation. The patient is known to Dr. Seng Andrade from previous lumpectomy and cholecystectomy. Thank you for allowing me to participate in the care of this patient and will follow along with you and make recommendations as per the patient's clinical course. MD ANNY Loza/JCDarnell /5:08 PM /8:05 AM
[2017-07-17] MEDS ORDERED: LEVOFLOXACIN 500 MG TAB PO SCH (09:00)
== END 2017-07-16 13:41 | disposition home or self-care (01) | DRG 392 ==
LOC: NEPC 22:45 → NEDA 07-14 00:19 → N07A 07-14 02:00 → N07B 07-14 22:03
PROVIDERS: ADMIT Specialist; ATTEND Specialist
DX: K57.20 Diverticulitis of large intestine with perforation and abscess without bleeding (principal); D70.9 Neutropenia, unspecified; R50.81 Fever presenting with conditions classified elsewhere; D63.8 Anemia in other chronic diseases classified elsewhere; J45.909 Unspecified asthma, uncomplicated; M19.90 Unspecified osteoarthritis, unspecified site; Z98.51 Tubal ligation status; T45.1X5A Adverse effect of antineoplastic and immunosuppressive drugs, initial encounter; Z87.891 Personal history of nicotine dependence; D05.91 Unspecified type of carcinoma in situ of right breast
CPT/HCPCS: 71010; 80048; 80053; 82247; 82565; 83605; 85007; 85027; 85610; 85730; 87040; J1442; J1644; J1956; J2270; J7030

== ENCOUNTER 2017-12-11 14:02 | Emergency (ER) | payer MEDICARE ==
[~2017-12-11] VITALS: Ht 170.2 cm; Wt 87.0 kg
[~2017-12-11 14:02] MED LIST changes: -AMOX875T2 PO; +FLOR250C PO; +LEVA500T33 PO; +METR-1 PO
[2017-12-11 14:06] VITALS: BP 208/102; PULSE 82; RESP 18; TEMP 97.8; O2SAT 98
[2017-12-11] MEDS ORDERED: PENICILLIN V PO (14:18)
[2017-12-11] MEDS ORDERED: ANAS1TAB PO (14:18)
[2017-12-11] MEDS ORDERED: CALC1TAB34 PO (14:20)
[2017-12-11] MEDS ORDERED: AMBI5TAB PO (14:20)
[2017-12-11 14:58] LABS: AUTOMATED NEUTROPHIL # 2.7 TH/MM3 (1.8-7.7); BASOPHIL % 0.3 % (0.0-2.0); EOSINOPHIL # 0.1 TH/MM3 (0-0.4); EOSINOPHIL % 1.6 % (0.0-4.0); HEMATOCRIT 37.3 % (35.0-46.0); HEMOGLOBIN 12.8 GM/DL (11.6-15.3); LYMPH % 25.2 % (9.0-44.0); MEAN CELL VOLUME 99.8 FL (80.0-100.0); MEAN CORPUSCULAR HEMOGLOBIN 34.3 PG (27.0-34.0); MEAN CORPUSCULAR HGB CONC 34.4 % (32.0-36.0); MEAN PLATELET VOLUME 6.8 FL (7.0-11.0); MONO % 6.8 % (0.0-8.0); MONOCYTE # 0.3 TH/MM3 (0-0.9); NEUT % 66.1 % (16.0-70.0); PLATELET COUNT 155 TH/MM3 (150-450); RED BLOOD COUNT 3.74 MIL/MM3 (4.00-5.30); RED CELL DISTRIBUTION WIDTH 10.9 % (11.6-17.2); WHITE BLOOD COUNT 4.1 TH/MM3 (4.0-11.0)
[2017-12-11 15:04] LABS: CHLORIDE 106 MEQ/L (98-107); SODIUM (NA) 138 MEQ/L (136-145)
[2017-12-11 15:06] LABS: CALCIUM 9.8 MG/DL (8.5-10.1)
[2017-12-11 15:07] LABS: BICARBONATE 23.4 MEQ/L (21.0-32.0); BLOOD UREA NITROGEN 13 MG/DL (7-18); GLUCOSE,RANDOM 94 MG/DL (74-106)
[2017-12-11 15:08] LABS: INTERNATIONAL NORMALIZED RATIO 1.1 RATIO; PROTHROMBIN TIME - PATIENT 10.7 SEC (9.8-11.6)
[2017-12-11 15:10] LABS: ALT (GPT) 17 U/L (10-53); AST (GOT) 17 U/L (15-37); CREATININE 0.86 MG/DL (0.50-1.00); GLOMERULAR FILTRATION RATE 65 ML/MIN (>89)
[2017-12-11 15:12] LABS: TOTAL BILIRUBIN ADULT 0.6 MG/DL (0.2-1.0); TOTAL PROTEIN 7.9 GM/DL (6.4-8.2)
[2017-12-11 15:13] LABS: ALKALINE PHOSPHATASE 109 U/L (45-117)
[2017-12-11 15:22] VITALS: BP 150/87
[2017-12-11] MEDS ORDERED: [UNRECOGNIZED DRUG - CODE] SWISH-SPIT (15:28)
--- NOTE | 2017-12-11 15:29 | PD ---
HPI Chief Complaint: ENT Complaint Time Seen by Provider: 14:14 Travel History International Travel<30 days: No Contact w/Intl Traveler<30days: No Traveled to known affect area: No History of Present Illness HPI This is a 72-year-old female presents to the ER complaining of lesions in her mouth. Patient has history of breast cancer status post chemo and radiation was done few weeks ago. She states that she has noticed painful ulcers in the back of her throat that has been bothering her a lot and causing trouble swallowing. Denies any weight loss, no fever or chills, no night sweats, no chest pain or shortness of breath. PFSH Past Medical History Arthritis: Yes (rt hip) Asthma: Yes Cancer: Yes Cardiovascular Problems: No Chemotherapy: Yes Diabetes: No Diminished Hearing: No Diverticulitis: Yes Endocrine: No Gastrointestinal Disorders: Yes (diverticulitis) Genitourinary: No Hepatitis: No Hiatal Hernia: No Hypertension: No Immune Disorder: No Implanted Vascular Access Dvce: Yes Medical other: No Musculoskeletal: Yes Neurologic: No Psychiatric: No Reproductive: No Respiratory: Yes Immunizations Current: No Radiation Therapy: No Thyroid Disease: No Tetanus Vaccination: Unknown ?: Not Past Surgical History Abdominal Surgery: Yes (cholecystomy, appendectomy) AICD: No Appendectomy: Yes Cardiac Surgery: No Cholecystectomy: Yes Ear Surgery: No Endocrine Surgery: Yes (tonsillectomy) Eye Surgery: No Genitourinary Surgery: No Gynecologic Surgery: No Joint Replacement: No Neurologic Surgery: No Oral Surgery: Yes (implant) Pacemaker: No Thoracic Surgery: No Tonsillectomy: Yes Other Surgery: Yes (rt lumpectomy) Social History Alcohol Use: No Tobacco Use: No Substance Use: No Allergies-Medications (Allergen,Severity, Reaction): Coded Allergies: No Known Allergies (Unverified Adverse Reaction, Unknown, 12/11/17) Reported Meds & Prescriptions Reported Meds & Active Scripts Active Triamcinolone in Orabase (Triamcinolone Acetonide (Mouth) 0.1 % Pst 1 % SWISH- SPIT BID 14 Days Reported Caltrate 600+D Plus Minerals (Calcium Carbonate-Vitamin D W/Minerals) 600-800 Mg -Unit Tab 1 Tab PO DAILY Ambien (Zolpidem Tartrate) 5 Mg Tab 5 Mg PO HS PRN [Penicilin Vk] 500 Mg PO QID Anastrozole 1 Mg Tab 1 Mg PO DAILY Herceptin Inj (Trastuzumab) 440 Mg Inj 1 Injection IM Review of Systems Except as stated in HPI: all other systems reviewed are Neg Physical Exam Narrative GENERAL: Alert oriented 3 no acute distress SKIN: Focused skin assessment warm/dry. HEAD: Atraumatic. Normocephalic. EYES: Pupils equal and round. No scleral icterus. No injection or drainage. ENT: Scattered white ulcers with erythematous base on the back of the throat as well as the uvula. No swelling of her tonsils, airways patent with no compromise, no nasal bleeding or discharge. Mucous membranes pink and moist. NECK: Trachea midline. No JVD. CARDIOVASCULAR: Regular rate and rhythm. No murmur appreciated. RESPIRATORY: No accessory muscle use. Clear to auscultation. Breath sounds equal bilaterally. GASTROINTESTINAL: Abdomen soft, non-tender, nondistended. Hepatic and splenic margins not palpable. MUSCULOSKELETAL: No obvious deformities. No clubbing. No cyanosis. No edema. NEUROLOGICAL: Awake and alert. No obvious cranial nerve deficits. Motor grossly within normal limits. Normal speech. PSYCHIATRIC: Appropriate mood and affect; insight and judgment normal. Data Data Last Documented VS Vital Signs Date Time Temp Pulse Resp B/P (MAP) Pulse Ox O2 Delivery O2 Flow Rate FiO2 12/11/17 15:22 68 16 150/87 (108) 99 12/11/17 14:06 97.8 Orders Orders Complete Blood Count With Diff (12/11/17 14:29) Comprehensive Metabolic Panel (12/11/17 14:29) Prothrombin Time / Inr (Pt) (12/11/17 14:29) Act Partial Throm Time (Ptt) (12/11/17 14:29) Group A Rapid Strep Screen (12/11/17 14:29) Strep Culture (Group A) (12/11/17 14:33) Ed Discharge Order (12/11/17 15:29) Labs Laboratory Tests Test 12/11/17 14:49 White Blood Count 4.1 TH/MM3 Red Blood Count 3.74 MIL/MM3 Hemoglobin 12.8 GM/DL Hematocrit 37.3 % Mean Corpuscular Volume 99.8 FL Mean Corpuscular Hemoglobin 34.3 PG Mean Corpuscular Hemoglobin Concent 34.4 % Red Cell Distribution Width 10.9 % Platelet Count 155 TH/MM3 Mean Platelet Volume 6.8 FL Neutrophils (%) (Auto) 66.1 % Lymphocytes (%) (Auto) 25.2 % Monocytes (%) (Auto) 6.8 % Eosinophils (%) (Auto) 1.6 % Basophils (%) (Auto) 0.3 % Neutrophils # (Auto) 2.7 TH/MM3 Lymphocytes # (Auto) 1.0 TH/MM3 Monocytes # (Auto) 0.3 TH/MM3 Eosinophils # (Auto) 0.1 TH/MM3 Basophils # (Auto) 0.0 TH/MM3 CBC Comment DIFF FINAL Differential Comment Prothrombin Time 10.7 SEC Prothromb Time International Ratio 1.1 RATIO Activated Partial Thromboplast Time 25.4 SEC Blood Urea Nitrogen 13 MG/DL Creatinine 0.86 MG/DL Random Glucose 94 MG/DL Total Protein 7.9 GM/DL Albumin 4.0 GM/DL Calcium Level 9.8 MG/DL Alkaline Phosphatase 109 U/L Aspartate Amino Transf (AST/SGOT) 17 U/L Alanine Aminotransferase (ALT/SGPT) 17 U/L Total Bilirubin 0.6 MG/DL Sodium Level 138 MEQ/L Potassium Level 3.6 MEQ/L Chloride Level 106 MEQ/L Carbon Dioxide Level 23.4 MEQ/L Anion Gap 9 MEQ/L Estimat Glomerular Filtration Rate 65 ML/MIN MDM Medical Decision Making Medical Screen Exam Complete: Yes Emergency Medical Condition: Yes Differential Diagnosis Aphthous ulcers, radiation stomatitis Narrative Course This is a 72-year-old female presents to the ER complaining of ulcers in her throat. On examination these ulcers appear to be viral and there is no airway compromise. Labs are within normal limits. I believe this patient may benefit from symptomatic treatment with topical steroids. If these continue to bother her I recommend that she follows up with ENT to evaluate her cauterization is needed. No venous ulcers are complications from radiation therapy or from low immunity status or iatrogenic. Explained the plan of care to the patient and she agrees. Diagnosis Primary Impression: Aphthous stomatitis Scripts Triamcinolone Acetonide (Mouth (Triamcinolone in Orabase) 0.1 % Pst 1 % SWISH-SPIT BID for 14 Days Prov: Dieudonne Villa MD 12/11/17 Disposition: 01 DISCHARGE HOME Condition: Stable Dieudonne Villa MD Dec 11, 2017 15:29
[2017-12-12] MEDS ORDERED: PENI500T PO (11:17)
== END 2017-12-11 15:36 | disposition home or self-care (01) ==
LOC: PHED 14:02
DX: K12.0 Recurrent oral aphthae (principal); M16.11 Unilateral primary osteoarthritis, right hip; J45.909 Unspecified asthma, uncomplicated; Z85.3 Personal history of malignant neoplasm of breast; Z92.3 Personal history of irradiation; Z92.21 Personal history of antineoplastic chemotherapy
CPT/HCPCS: 80053; 85025; 85610; 85730; 87081; 87880; 99283